=== PATIENT | female | born 1930 | race Caucasian/White ===

== ENCOUNTER 2021-06-07 17:55 | Inpatient (IN) | payer MEDICARE ==
[~2021-06-07] VITALS: Ht 167.6 cm; Wt 85.1 kg
--- NOTE | 2021-06-07 18:19 | PHYS DOC ---
Past History Past Medical History: Anxiety, Arthritis, Dementia, Depression, Diabetes General Adult EDM: Chief Complaint: WEAKNESS/GENERALIZED HPI: HPI: ...."... I was in the bathroom... " " I ve been weak... ".. " I maria luisa fell against the wall and slid ... down... and landed on my butt.. not really hurt except my hips... " Patient is a 89 year old female who presents with hx of fever, weakness and collapse. Pt. states she just fell against the wall in bathroom and slid down. Pt. does complain of some bilateral hip and low back pain. Pt has followed with Dr. Giron. Pt. has had poor intake recently and some episodes of vomiting and diarrhea. Has had some generalized lower abdomen pain this past week. Patient does have a past history of dementia, GERD, diabetes, hypothyroidism, bladder incontinence, constipation, elevated cholesterol, and generalized deconditioning. Patient denies any recent travel. No specific ill contacts. Patient has had 1 COVID vaccination and did have flu vaccination this season. Her last meal was a bottle of Ensure. Reportedly no recent use of antibiotics. No history contacts with C. difficile infection. Review of Systems: Review of Systems: Constitutional: Subjective complaints of fever or chills Eyes: Denies change in visual acuity HENT: Denies nasal congestion or sore throat Respiratory: Denies cough or shortness of breath Cardiovascular: Denies chest pain or edema GI: Complains of lower abdominal pain, nausea, vomiting, and diarrhea : Denies dysuria Musculoskeletal: Complaints of bilateral hip and lower back pain Integument: Denies rash Neurologic: Denies headache, focal weakness or sensory changes Endocrine: Denies polyuria or polydipsia Lymphatic: Denies swollen glands Psychiatric: History of depression and anxiety Family History: Family History: Noncontributory to presentation Current Medications: Current Meds: See nursing for home meds Allergies: Allergies: Allergic to sulfa Physical Exam: PE: Constitutional: Moderate acute distress, non-toxic appearance. [] HENT: Normocephalic, atraumatic, bilateral external ears normal, oropharynx dry, no oral exudates, nose normal. [] Eyes: PERRLA, EOMI, conjunctiva normal, no discharge. [] Neck: Normal range of motion, no tenderness, supple, no stridor. [] Cardiovascular: Tachycardia heart rate regular rhythm, no murmur, PMI to left Lungs & Thorax: Bilateral breath sounds equal at apex auscultation [] Abdomen: Bowel sounds hyperactive, soft, lower abdomen tenderness, no masses, no pulsatile masses. Rebound to lower abdomen Skin: Warm, dry, no erythema, no rash. Poor turgor Back: Lumbar tenderness, no CVA tenderness. [] Extremities:, no cyanosis, no clubbing, , no edema. Tenderness to bilateral hips Neurologic: Alert and oriented name, daughter,, knows she is in a hospital, moves all extremities on request, does appear to have distal sensory, no focal deficits noted Per patient or family Psychologic: Affect anxious, some obvious memory impairment, mood normal. [] EKG: EKG: My interpretation of EKG shows sinus rhythm at 91 bpm. There is some findings of a left axis deviation and repolarization abnormality. But no findings of acute STEMI of contralateral changes. There is some findings of inferior strain. Time of EKG is 1849 hrs. [] Radiology/Procedures: Radiology/Procedures: [place] [address] IMAGING REPORT Signed PATIENT: BEST MARTINEZ ACCOUNT: [id number] : 1930 LOCATION: ER AGE: 89 SEX: F EXAM STATUS: REG ER ORD. PHYSICIAN: ANJALI RENDON MD REASON: fall PROCEDURE: CT LUMBAR SPINE WO CONTRAST Exam: CT of lumbar spine without contrast INDICATION: Fall TECHNIQUE: Sequential axial images through the lumbar spine obtained without IV contrast. Sagittal and coronal reformatted images were reconstructed from the axial data and reviewed. Exposure: One or more of the following in the visualized dose reduction techniques were utilized for this examination: 1. Automated exposure control 2. Adjustment of the MA and/or KV according to patient size 3. Use of iterative of reconstructive technique Comparisons: None FINDINGS: Vertebral body heights are well-maintained. Grade 1 anterolisthesis of L4 on L5. Fracture through the lumbar spine is not identified. Multilevel spondylotic change in the lumbar spine with degenerative disc disease diffusely present throughout the lumbar spine. Diffuse bilateral facet arthropathy is also noted throughout the lumbar spine. Visualized paraspinal soft tissues are unremarkable. IMPRESSION: Negative CT lumbar spine for acute traumatic injury. Electronically signed by: Margarito Mcnally MD (06/07/2021 8:01 PM) [facility] DICTATED AND SIGNED BY: MARGRAITO MCNALLY MD DATE: 06/07/211958 CC: ANJALI RENDON MD; MATI GIRON ~MTH0 [address] [address] IMAGING REPORT Signed PATIENT: BEST ACCOUNT: [id number] : 1930 LOCATION: ER AGE: 89 SEX: F EXAM STATUS: REG ER ORD. PHYSICIAN: ANJALI RENDON MD REASON: fall PROCEDURE: CT HEAD WO CONTRAST Exam: CT head INDICATION: Fall TECHNIQUE: Sequential axial images through the head were obtained without the administration of IV contrast. Exposure: One or more of the following in the visualized dose reduction techniques were utilized for this examination: 1. Automated exposure control 2. Adjustment of the MA and/or KV according to patient size 3. Use of iterative of reconstructive technique Comparisons: None FINDINGS: No focal parenchymal lesion or hemorrhage is identified. There is no midline shift or sulcal effacement. No acute vascular territory infarction is identified. Palm-white distinction is preserved. The ventricular system is within normal limits without compression hydrocephalus. The basal cisterns are well maintained. The visualized portions of the paranasal sinuses and mastoid air cells are well- pneumatized. No acute fractures. IMPRESSION: No acute intracranial abnormality. Electronically signed by: Margarito Mcnally MD (06/07/2021 8:13 PM) [facility] DICTATED AND SIGNED BY: MARGARITO MCNALLY MD DATE: 06/07/212000 CC: ANJALI RENDON MD; MATI GIRON ~MTH0 0 [[address] [address] IMAGING REPORT Signed PATIENT: MICHELLEBEST ACCOUNT: [id number] : 1930 LOCATION: ER AGE: 89 SEX: F EXAM STATUS: REG ER ORD. PHYSICIAN: ANJALI RENDON MD REASON: pain PROCEDURE: ACUTE ABDOMEN SERIES Exam: Acute abdominal series INDICATION: Pain TECHNIQUE: Frontal view of the chest with upright and supine views the abdomen Comparisons: None FINDINGS: The cardiomediastinal silhouette and pulmonary vessels are within normal limits. The lung and pleural spaces are clear. Air and stool are noted throughout the colon to level the rectum in a nonobstructive bowel gas pattern. No suspicious masses or calcifications. Visualized osseous structures are unremarkable. IMPRESSION: 1. No acute cardiopulmonary process. 2. Nonobstructive bowel gas pattern. Electronically signed by: Margarito Mcnally MD (06/07/2021 8:50 PM) [facility] DICTATED AND SIGNED BY: MARGARITO MCNALLY MD DATE: 06/07/212048 CC: ANJALI RENDON MD; MATI GIRON Kamryn PA ~MTH0 0 ][place] [address] IMAGING REPORT Signed PATIENT: BEST MARTINEZ ACCOUNT: [id number] : 1930 LOCATION: ER AGE: 89 SEX: F EXAM STATUS: REG ER ORD. PHYSICIAN: ANJALI REDNON MD REASON: pain, OMNI 300, 60ml & OMNI 240, 30ml PROCEDURE: CT ABD PELV W/ORAL&IV CONTRAST Exam: CT of abdomen and pelvis with contrast INDICATION: Pain TECHNIQUE: Sequential axial images through the abdomen and pelvis obtained fo llowing the administration of 60 mL of Isovue-370 IV contrast. Sagittal and coronal reformatted images were reconstructed from the axial data and reviewed. Exposure: One or more of the following in the visualized dose reduction techniques were utilized for this examination: 1. Automated exposure control 2. Adjustment of the MA and/or KV according to patient size 3. Use of iterative of reconstructive technique Comparisons: Radiograph same day FINDINGS: Heart size is normal. No pericardial effusion. Strandy opacities the dependent portion lungs likely representing atelectasis. No pleural effusion. Cystic lesion at the left hepatic lobe measuring up to 5 cm favored represent simple cysts. Mild intrahepatic biliary ductal dilatation. Gallbladder surgicall y absent. Spleen, pancreas and adrenals are unremarkable. No perinephric inflammation or hydronephrosis. No renal or ureteral calculi are identified. Bladder is decompressed not well evaluated. Uterus is absent. No abnormal adnexal mass. There is a moderate length segment of wall thickening involving the descending and sigmoid colon. Remainder large and small bowel are unremarkable. No free intra-abdominal air or fluid. No obstruction. Abdominal aorta has a normal course and caliber. Abdominal vasculature is patent. No enlarged intra-abdominal lymph nodes are identified. No suspicious osseous lesions or acute fractures. IMPRESSION: Long segment colitis involving the descending and sigmoid colon. Infectious or inflammatory in etiology. Correlate with lactate levels for ischemia. Electronically signed by: Margarito Mcnally MD (06/07/2021 10:19 PM) [facility] DICTATED AND SIGNED BY: MARGARITO MCNALLY MD DATE: 06/07/212210 CC: ANJALI RENDON MD; MATI GIRON PA ~MTH0 0 Heart Score: C/O Chest Pain: N/A HEART Score for Chest Pain: HEART Score for Chest Pain Response (Comments) Value History Moderately Suspicious 1 ECG Nonspecific Repolarizatio 1 Age > 65 2 Risk Factors 1 or 2 Risk Factors 1 Troponin < Normal Limit 0 Total 5 Risk Factors: Risk Factors: DM, Current or recent (<one month) smoker, HTN, HLP, family history of CAD, obesity. Risk Scores: Score 0 - 3: 2.5% MACE over next 6 weeks - Discharge Home Score 4 - 6: 20.3% MACE over next 6 weeks - Admit for Clinical Observation Score 7 - 10: 72.7% MACE over next 6 weeks - Early Invasive Strategies Course & Med Decision Making: Course & Med Decision Making Pertinent Labs and Imaging studies reviewed. (See chart for details) Discussed presentation, testing and tx. plan with Dr. Talavera- admit to his service. Impression: 1. Abdomen Pain 2. Nausea/Vomiting/ Diarrhea 3. Elevated Lactic Acid 4.5 4. Dehydration 5. DM - 337 6. Renal Insuf. -32 BUN, -Creat 1.7 7. Leukocytosis 15.3 8. Elev. D-dimer 19 9. Colitis 10.SIRS 11. Dehydration [] Dragon Disclaimer: Dragdavid Disclaimer: This electronic medical record was generated, in whole or in part, using a voice recognition dictation system. Departure Departure: Referrals: MATI GIRON (PCP) Adelso Disclaimer This chart was dictated in whole or in part using Voice Recognition software in a busy, high-work load, and often noisy Emergency Department environment. It may contain unintended and wholly unrecognized errors or omissions. Dragon Disclaimer This chart was dictated in whole or in part using Voice Recognition software in a busy, high-work load, and often noisy Emergency Department environment. It may contain unintended and wholly unrecognized errors or omissions. ANJALI RENDON MD Jun 07, 2021 18:19
[2021-06-07 18:44] LABS: BASO % 0 % (0-3); EOS % 0 % (0-3); HEMATOCRIT 38.7 % (36.0-47.0); HEMOGLOBIN 12.7 g/dL (12.0-15.5); LYMPH # 0.3 x10^3/uL (1.0-4.8); LYMPH % 2 % (24-48); MEAN CORPUSCULAR HEMOGLOBIN 32 pg (25-35); MEAN CORPUSCULAR HGB CONC 33 g/dL (31-37); MEAN CORPUSCULAR VOLUME 97 fL (79-100); MONO % 6 % (0-9); NEUT % 92 % (31-73); PLATELET COUNT 189 x10^3/uL (140-400); RED BLOOD COUNT 3.98 x10^6/uL (3.50-5.40); RED CELL DISTRIBUTION WIDTH 13.5 % (11.5-14.5); WHITE BLOOD COUNT 15.3 x10^3/uL (4.0-11.0)
[2021-06-07] MEDS ORDERED: cefTRIAXone SODIUM 1 GM VIAL ONE (18:53)
[2021-06-07] MEDS ORDERED: IV NORMAL SALINE 50ML 50 ML ONE (18:53)
[2021-06-07 19:04] LABS: CALCIUM 9.4 mg/dL (8.5-10.1); CREATININE 1.7 mg/dL (0.6-1.0); GFR 28.3
[2021-06-07 19:16] LABS: ALBUMIN 3.2 g/dL (3.4-5.0); DIRECT BILIRUBIN 0.2 mg/dL (0.0-0.2); MAGNESIUM 2.3 mg/dL (1.8-2.4); TOTAL BILIRUBIN 0.4 mg/dL (0.2-1.0)
[2021-06-07 19:42] LABS: % BANDS 5 % (0-9); % LYMPHS 4 % (24-48); % MONOS 6 % (0-10); % SEGS 85 % (35-66); PLT ESTIMATE ADEQUATE (ADEQUATE)
[2021-06-07] MEDS: IV RINGERS SOLUTION,LACTATED 1,000 ML IV SCH ×2 (19:49→21:46)
--- NOTE | 2021-06-07 20:03 | RAD ---
Exam: CT of lumbar spine without contrast INDICATION: Fall TECHNIQUE: Sequential axial images through the lumbar spine obtained without IV contrast. Sagittal an d coronal reformatted images were reconstructed from the axial data and reviewed. Exposure: One or more of the following in the visualized dose reduction techniques were utilized for this examination: 1. Automated exposure control 2. Adjustment of the MA and/or KV according to patient size 3. Use of iterative of reconstructive technique Comparisons: None FINDINGS: Vertebral body heights are well-maintained. Grade 1 anterolisthesis of L4 on L5. Fracture through the lumbar spine is not identified. Multilevel spondylotic change in the lumbar spine with degenerative disc disease diffusely present th roughout the lumbar spine. Diffuse bilateral facet arthropathy is also noted throughout the lumbar sp ine. Visualized paraspinal soft tissues are unremarkable. IMPRESSION: Negative CT lumbar spine for acute traumatic injury. Electronically signed by: Margarito Cox MD (06/07/2021 8:01 PM) [facility]
[2021-06-07 20:10] LABS: INFLUENZA A PATIENT NEGATIVE (NEGATIVE); INFLUENZA B PATIENT NEGATIVE (NEGATIVE)
--- NOTE | 2021-06-07 20:15 | RAD ---
Exam: CT head INDICATION: Fall TECHNIQUE: Sequential axial images through the head were obtained without the administration of IV co ntrast. Exposure: One or more of the following in the visualized dose reduction techniques were utilized for this examination: 1. Automated exposure control 2. Adjustment of the MA and/or KV according to patient size 3. Use of iterative of reconstructive technique Comparisons: None FINDINGS: No focal parenchymal lesion or hemorrhage is identified. There is no midline shift or sulcal effaceme nt. No acute vascular territory infarction is identified. Palm-white distinction is preserved. The ventricular system is within normal limits without compression hydrocephalus. The basal cisterns are well maintained. The visualized portions of the paranasal sinuses and mastoid air cells are well-pneumatized. No acute fractures. IMPRESSION: No acute intracranial abnormality. Electronically signed by: Margarito Cox MD (06/07/2021 8:13 PM) [facility]
[2021-06-07] MEDS ORDERED: IOHEXOL 300 MG/ML 75 ML VIAL. IV ONE (20:30)
[2021-06-07] MEDS ORDERED: IOHEXOL 240 MG/ML 50ML VIAL. PO ONE (20:45)
[2021-06-07] MEDS ORDERED: levETIRAcetam 500 MG/5 ML VIAL IV ONE (20:49)
[2021-06-07] MEDS ORDERED: IV NORMAL SALINE 100ML 100 ML ONE (20:50)
--- NOTE | 2021-06-07 20:52 | RAD ---
Exam: Acute abdominal series INDICATION: Pain TECHNIQUE: Frontal view of the chest with upright and supine views the abdomen Comparisons: None FINDINGS: The cardiomediastinal silhouette and pulmonary vessels are within normal limits. The lung and pleural spaces are clear. Air and stool are noted throughout the colon to level the rectum in a nonobstructive bowel gas patter n. No suspicious masses or calcifications. Visualized osseous structures are unremarkable. IMPRESSION: 1. No acute cardiopulmonary process. 2. Nonobstructive bowel gas pattern. Electronically signed by: Margarito Cox MD (06/07/2021 8:50 PM) K[facility]ST[facility]
--- NOTE | 2021-06-07 22:21 | RAD ---
Exam: CT of abdomen and pelvis with contrast INDICATION: Pain TECHNIQUE: Sequential axial images through the abdomen and pelvis obtained following the administrati on of 60 mL of Isovue-370 IV contrast. Sagittal and coronal reformatted images were reconstructed fro m the axial data and reviewed. Exposure: One or more of the following in the visualized dose reduction techniques were utilized for this examination: 1. Automated exposure control 2. Adjustment of the MA and/or KV according to patient size 3. Use of iterative of reconstructive technique Comparisons: Radiograph same day FINDINGS: Heart size is normal. No pericardial effusion. Strandy opacities the dependent portion lungs likely r epresenting atelectasis. No pleural effusion. Cystic lesion at the left hepatic lobe measuring up to 5 cm favored represent simple cysts. Mild intr ahepatic biliary ductal dilatation. Gallbladder surgically absent. Spleen, pancreas and adrenals are unremarkable. No perinephric inflammation or hydronephrosis. No renal or ureteral calculi are identified. Bladder is decompressed not well evaluated. Uterus is absent. No abnormal adnexal mass. There is a moderate length segment of wall thickening involving the descending and sigmoid colon. Rem ainder large and small bowel are unremarkable. No free intra-abdominal air or fluid. No obstruction. Abdominal aorta has a normal course and caliber. Abdominal vasculature is patent. No enlarged intra-abdominal lymph nodes are identified. No suspicious osseous lesions or acute fractures. IMPRESSION: Long segment colitis involving the descending and sigmoid colon. Infectious or inflammatory in etiolo gy. Correlate with lactate levels for ischemia. Electronically signed by: Margarito Cox MD (06/07/2021 10:19 PM) [facility]
[2021-06-07] MEDS ORDERED: ONDANSETRON PF 4 MG/2 ML VIAL. IVP PRN (23:45)
[2021-06-07] MEDS ORDERED: INSULIN REGULAR VIAL 100 UNIT in IV NORMAL SALINE 100ML 100 ML IV PRN (23:45)
[2021-06-07] MEDS ORDERED: ACETAMINOPHEN 325 MG TABLET PO PRN (23:45)
[2021-06-08] MEDS ORDERED: IV RINGERS SOLUTION,LACTATED 1,000 ML IV ONE
[2021-06-08] MEDS ORDERED: INSULIN REGULAR 100 UNIT/ML 3ML VIAL. IV ONE
[2021-06-08] MEDS ORDERED: APIXABAN 5 MG TABLET. PO ONE (01:00)
[2021-06-08 02:25] VITALS: BP 105/62
--- NOTE | 2021-06-08 02:45 | NUR ---
The patient, BEST MARTINEZ, 89 y/o, F admitted by MERY MATHIS MD, was given written information regarding hospital policies, unit procedures and contact persons. Valuables were checked and vitals taken. Pt is A&Ox4 able to express own concerns on room air. Pt has no complaints at this time. Pt is [place] but also states she has ordered hearing aids and also glasses. Pt is currently in bed resting.
[2021-06-08] MEDS: IV RINGERS SOLUTION,LACTATED 1,000 ML IV SCH (03:10)
[2021-06-08] MEDS ORDERED: CARB1DRO20 EACHEYE (04:11)
[2021-06-08] MEDS ORDERED: DONE5TAB7 PO (04:11)
[2021-06-08] MEDS ORDERED: OXYB5TAB10 PO (04:11)
[2021-06-08] MEDS ORDERED: CHOL400T36 PO (04:11)
[2021-06-08] MEDS ORDERED: MULT-245 PO (04:11)
[2021-06-08] MEDS ORDERED: LEVO75TA5 PO (04:11)
[2021-06-08] MEDS ORDERED: POLY2500 PO (04:11)
[2021-06-08] MEDS ORDERED: FAMO20TA5 PO (04:11)
[2021-06-08] MEDS ORDERED: DOCU100C28 PO ×2 (04:11)
[2021-06-08] MEDS ORDERED: [UNRECOGNIZED DRUG - CODE] PO (04:11)
[2021-06-08] MEDS ORDERED: SIMV80TA17 PO (04:11)
[2021-06-08] MEDS ORDERED: OMEG1CAP50 PO (04:11)
[2021-06-08] MEDS ORDERED: ASPI-630 PO (04:11)
[2021-06-08] MEDS ORDERED: PRIM50TA24 PO (04:11)
[2021-06-08] MEDS ORDERED: GLIP5TAB10 PO (04:11)
[2021-06-08] MEDS ORDERED: IPRATRPIUM/ALBUTEROL 0.5/2.5MG 3 ML NEBU. ONE (05:07)
[2021-06-08 05:20] VITALS: BP 128/67
[2021-06-08] MEDS: IPRATRPIUM/ALBUTEROL 0.5/2.5MG 3 ML NEBU. NEB SCH ×4 (05:33→19:10)
[2021-06-08 06:14] LABS: BASO % 0 % (0-3); EOS % 0 % (0-3); HEMATOCRIT 34.4 % (36.0-47.0); HEMOGLOBIN 11.3 g/dL (12.0-15.5); LYMPH # 1.7 x10^3/uL (1.0-4.8); LYMPH % 13 % (24-48); MEAN CORPUSCULAR HEMOGLOBIN 32 pg (25-35); MEAN CORPUSCULAR HGB CONC 33 g/dL (31-37); MEAN CORPUSCULAR VOLUME 97 fL (79-100); MONO # 1.6 x10^3/uL (0.0-1.1); MONO % 12 % (0-9); NEUT # 10.5 x10^3uL (1.8-7.7); NEUT % 75 % (31-73); PLATELET COUNT 176 x10^3/uL (140-400); RED BLOOD COUNT 3.56 x10^6/uL (3.50-5.40); RED CELL DISTRIBUTION WIDTH 13.5 % (11.5-14.5); WHITE BLOOD COUNT 13.9 x10^3/uL (4.0-11.0)
[2021-06-08 06:20] LABS: CALCIUM 8.6 mg/dL (8.5-10.1); CREATININE 1.5 mg/dL (0.6-1.0); GFR 32.7; POTASSIUM 3.9 mmol/L (3.5-5.1)
[2021-06-08] MEDS: POLYVINYL ALCOHOL 1.4% OPHTH SOLUTION 15ML BOTTLE. OU SCH ×6 (06:35→20:24)
[2021-06-08] MEDS: LEVOTHYROXINE 75 MCG TABLET PO SCH (06:35)
[2021-06-08] MEDS: POLYETHYLENE GLYCOL 3350 17 GM PACKET. PO SCH (07:56)
[2021-06-08] MEDS: FAMOTIDINE 20 MG TABLET PO SCH (07:57)
[2021-06-08] MEDS: ASPIRIN CHEWABLE 81 MG TABLET. PO SCH (07:57)
[2021-06-08] MEDS: CHOLECALCIFEROL (VITAMIN D3) 1,000 UNIT TABLET PO SCH (07:57)
[2021-06-08] MEDS: DONEPEZIL HCL 5 MG TABLET. PO SCH (07:57)
[2021-06-08] MEDS: glipiZIDE 5 MG TABLET PO SCH ×2 (07:58→16:52)
[2021-06-08] MEDS: OXYBUTYNIN CHLORIDE 5 MG TABLET PO SCH (07:58)
[2021-06-08] MEDS: metroNIDAZOLE 500 MG TABLET PO SCH ×3 (07:58→20:24)
[2021-06-08] MEDS: DOCUSATE SODIUM 100 MG CAPSULE PO SCH ×2 (07:58→20:22)
[2021-06-08] MEDS: MULTIVITAMIN with MINERAL TABLET. PO SCH (07:58)
[2021-06-08] MEDS ORDERED: OMEGA-3 FATTY ACIDS/FISH OIL 1,000 MG CAPSULE. PO SCH (09:00)
[2021-06-08] MEDS ORDERED: LUTEIN PO SCH (09:00)
[2021-06-08] MEDS ORDERED: MULTIVIT MIN PO SCH (09:00)
[2021-06-08] MEDS ORDERED: [UNRECOGNIZED DRUG - OTHER] PO SCH (09:00)
[2021-06-08] MEDS ORDERED: ZEAXANT PO SCH (09:00)
[2021-06-08 09:01] LABS: BACTERIA,URINE 0 /HPF (0-FEW); BILIRUBIN,URINE NEG (NEG); CLARITY,URINE CLEAR; COLOR,URINE YELLOW; GLUCOSE,URINE NEG (NEG); NITRITE,URINE NEG (NEG); RBC,URINE OCC /HPF (0-2); SQUAMOUS EPITHELIAL CELL,UR OCC /LPF; UROBILINOGEN,URINE 0.2 mg/dL (0.2 mg/dL); WBC,URINE OCC /HPF (0-4)
[2021-06-08] MEDS: PRIMIDONE 50 MG TABLET PO SCH (10:13)
[2021-06-08 11:01] VITALS: BP 115/56
[2021-06-08 14:51] VITALS: BP 134/55
--- NOTE | 2021-06-08 15:12 | HP ---
DATE OF SERVICE: 06/08/2021 ADMIT DATE: 06/08/2021 HISTORY OF PRESENT ILLNESS: The patient is an 89-year-old female patient who presented to the Emergency Room with a complaint of generalized weakness. She apparently went to the bathroom and according to her, she felt weak and fell against the wall and slid down and landed on her butt and felt pain all over. She did have also history of fever and stated that she just fell against the wall in the bathroom. She also complained of some bilateral hip and low back pain. She had poor intake recently and some episodes of vomiting and diarrhea, has had some generalized lower abdominal pain this past week. She does have past medical history of dementia and multiple other medical problems. She denied any recent travel or specific ill contact. She had one COVID vaccination and did have flu vaccination this season. Her last meal was a bottle of Ensure. Reportedly, no recent use of antibiotics. No history of contacts with C. diff infection. She was extensively investigated in the Emergency Room with lab work as well as imaging studies. Her CBC showed she has leukocytosis with a white cell count of 15,000. Her D-dimer was extremely high, more than 19. However, her prothrombin time and INR were within normal range. Her chemistry was also mostly unremarkable except for dehydration. Her blood sugar was high. She did have lactic acidosis. Urinalysis was essentially unremarkable and her CT scan of the head showed no acute intracranial abnormality. X-ray of the lumbar spine was unremarkable and unrevealing and CT scan of the abdomen and pelvis showed that the patient has large segment colitis involving the descending and sigmoid colon. Infectious inflammatory etiology correlates with lactate levels for ischemia. The patient was started on IV ceftriaxone as well as Flagyl and was admitted with acute colitis. PAST MEDICAL HISTORY: Significant for gastroesophageal reflux disease, type 2 diabetes mellitus, hypothyroidism, has chronic constipation, hyperlipidemia, generalized deconditioning, and bladder incontinence. PAST SURGICAL HISTORY: Significant for cholecystectomy, right total hip arthroplasty and total abdominal hysterectomy, bilateral salpingo-oophorectomy. ALLERGIES: SHE IS ALLERGIC TO SULFA DRUGS. MEDICATIONS: She is currently on the following medication: She is on Aricept 5 mg daily, simvastatin 80 mg at bedtime, [place] 3 fatty acids 1000 mg once a day, aspirin 81 mg once a day, primidone for Mysoline 50 mg daily. She is on carboxymethylcellulose for artificial tears 1 drop to both eyes 6 times a day. She is on Colace 100 mg twice a day, famotidine 20 mg twice a day, glipizide 5 mg twice a day. She is on levothyroxine 75 mcg once a day, oxybutynin chloride 5 mg daily. She is also on cholecalciferol 800 units once a day, multivitamin 1 tablet once a day. She is on polyethylene glycol 17 grams once a day. FAMILY HISTORY: Noncontributory. SOCIAL HISTORY: She is , currently lives with her daughter and son-in-law. She never smoked, never drank alcohol, does not use any drugs. She is a retired registered nurse. REVIEW OF SYSTEMS: She has bilateral cataracts that did not require any surgery. Denied any glaucoma or macular degeneration. She has severe sensorineural deafness, but denied any nosebleed, stuffy nose or postnasal drip. Denied any sore throat, sore tongue, toothache, hoarseness of voice or difficulty swallowing. Did complain of nausea, vomiting and has also diarrhea and constipation. Did complain of abdominal pain, mostly in the left lower quadrant and suprapubic area. PHYSICAL EXAMINATION: GENERAL: On arrival to the Emergency Room, the patient looked well and was clearly in no apparent respiratory distress. There was no pallor, jaundice, cyanosis or thyromegaly. No jugular venous distention. No lower limb edema. VITAL SIGNS: Her heart rate on arrival was 95, blood pressure is 129/62, temperature was 100.4, respiratory rate was 20 and oxygen saturation was 95% on room air. HEAD, EYES, EARS, NOSE, AND THROAT: Normocephalic, atraumatic. NECK: Supple. HEART: Showed normal first and second heart sounds. No gallop, rub or murmur. CHEST: Shows central trachea, equal bilateral chest expansion, air entry, vesicular breath sounds. No crepitation or rhonchi. ABDOMEN: Distended, generally soft with tenderness mostly in the left lower quadrant and suprapubic area. There is no guarding or rigidity. No organomegaly. All hernial orifices intact. Bowel sounds normal. NEUROLOGIC: She is very hard of hearing, otherwise all cranial nerves were intact. She moves extremities without difficulty. She does have peripheral diabetic neuropathy with complete loss of sensation according to her, particularly left foot. LABORATORY DATA: Her lab work on arrival showed a white cell count 15,300, hemoglobin 12.7, hematocrit 38.7, MCV 97 and platelet count of 189,000 with manual differential showed 92% polymorphs, 2% lymphocytes and 6% monocytes. Her serum sodium was 135, potassium 5, chloride 99, bicarbonate 22, anion gap of 14, BUN 32, creatinine 1.7. Glucose was 327. Estimated GFR was 28 mL per minute. Her lactic acid was 4.5, calcium was 9.4, magnesium 2.3. Total bilirubin, AST, ALT, alkaline phosphatase were normal. Her total protein was 6, albumin was 3.2 and serum lipase was 186. Her urinalysis was essentially unremarkable. D-dimer was extremely high at 19 mg per liter and her influenza A and B and rapid COVID testing was negative. ASSESSMENT AND PLAN: In summary, this is an 89-year-old female patient who came with generalized abdominal pain, some nausea and vomiting as well as diarrhea and generalized weakness. She was diagnosed with what seems to be acute colitis versus ischemic colitis involving the descending colon and sigmoid colon. Plan is to continue with IV antibiotic in the form of Flagyl and ceftriaxone. Continue with all her other medication. We will start her on clear liquid diet and advance diet as tolerated. I would also add LDH as the distribution of her colitis is consistent or typical for ischemic colitis. RENETTA/SHUKRI STEVENSON: Teresa TID: [id number]
[2021-06-08] MEDS: ENOXAPARIN ** NOTE DOSE ** SYRINGE SQ SCH (15:24)
[2021-06-08] MEDS: IV 1/2 NORMAL SALINE 1,000 ML IV SCH (15:26)
--- NOTE | 2021-06-08 17:06 | RAD ---
LEFT LEG VENOUS DOPPLER STUDY: Clinical indications: Left leg swelling and pain. Findings: Duplex sonography (including xiao scale evaluation and color flow and waveform spectral porfirio lysis) of the proximal aspect of the greater saphenous vein and the proximal aspect of the profunda f emoral vein and the entire length of the common femoral and superficial femoral and popliteal veins a nd the tibioperoneal trunk and the proximal aspect of the posterior tibial and peroneal veins of the left leg was performed. Normal compressibility, augmentation of color Doppler flow after calf kade lily, and respiratory variation of Doppler flow is seen. Thus, there are no sonographic findings of d eep venous thrombosis within these veins. Impression: There are no sonographic findings of deep venous thrombosis within the veins discussed ab ove of the left lower extremity. 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 RIGHT LEG VENOUS DOPPLER STUDY: Clinical indications: Right leg swelling and pain. Findings: Duplex sonography (including xiao scale evaluation and color flow and waveform spectral porfirio lysis) of the proximal aspect of the greater saphenous vein and proximal aspect of the profunda femor al vein and the entire length of the common femoral and superficial femoral and popliteal veins and t he tibioperoneal trunk and the proximal aspect of the posterior tibial and peroneal veins of the righ t leg was performed. Normal compressibility, augmentation of color Doppler flow after calf compressio n, and respiratory variation of Doppler flow is seen. Thus, there are no sonographic findings of deep venous thrombosis within these veins. Impression: There are no sonographic findings of deep venous thrombosis within the veins discussed ab ove of the right lower extremity. Electronically signed by: Junior López MD (06/08/2021 5:03 PM) [id number]
[2021-06-08 19:00] VITALS: BP 108/62
[2021-06-08] MEDS: SIMVASTATIN 40 MG TABLET. PO SCH (20:24)
[2021-06-08] MEDS: LACTOBACILLUS RHAMNOSUS GG 1 CAPSULE. PO SCH (20:24)
--- NOTE | 2021-06-08 23:07 | NUR ---
Assumed care of pt at this time. Report received from SHERMAN Givens. Pt resting comfortably in bed, call light in reach.
[2021-06-09] MEDS: IV 1/2 NORMAL SALINE 1,000 ML IV SCH (03:11)
--- NOTE | 2021-06-09 03:53 | EKG ---
[address] [address] Test Date: 2021-06-07 Test Time: 18:49:16 Pat Name: BEST MARTINEZ Department: Room: 107 A Gender: F Manager Basketball: ANTONY : 1930 Requested By: ANJALI RENDON Order Number: [id number] Reading MD: Paul Armstrong MD Measurements Intervals [place] Rate: 91 P: -41 HI: 174 QRS: -33 QRSD: 112 T: 123 QT: 366 QTc: 458 Interpretive Statements SINUS RHYTHM LBBB LAD Electronically Signed On 06-14-2021 14:16:[address]PRAISER by Paul Armstrong MD
[2021-06-09] MEDS: IPRATRPIUM/ALBUTEROL 0.5/2.5MG 3 ML NEBU. NEB SCH ×2 (04:46→05:17)
[2021-06-09] MEDS: LEVOTHYROXINE 75 MCG TABLET PO SCH (05:16)
[2021-06-09 05:17] VITALS: BP 123/71
[2021-06-09 06:09] LABS: HEMOGLOBIN 10.8 g/dL (12.0-15.5); RED BLOOD COUNT 3.37 x10^6/uL (3.50-5.40); RED CELL DISTRIBUTION WIDTH 13.2 % (11.5-14.5); WHITE BLOOD COUNT 9.5 x10^3/uL (4.0-11.0)
[2021-06-09 06:20] LABS: ALBUMIN 2.6 g/dL (3.4-5.0); ALBUMIN/GLOBULIN RATIO 0.9 (1.0-1.7); CALCIUM 8.4 mg/dL (8.5-10.1); CREATININE 1.2 mg/dL (0.6-1.0); GFR 42.3; TOTAL BILIRUBIN 0.4 mg/dL (0.2-1.0); TOTAL PROTEIN 5.6 g/dL (6.4-8.2)
[2021-06-09] MEDS: POLYVINYL ALCOHOL 1.4% OPHTH SOLUTION 15ML BOTTLE. OU SCH ×6 (07:00→21:41)
[2021-06-09] MEDS: glipiZIDE 5 MG TABLET PO SCH ×2 (08:29→15:45)
[2021-06-09] MEDS: OXYBUTYNIN CHLORIDE 5 MG TABLET PO SCH (08:30)
[2021-06-09] MEDS: metroNIDAZOLE 500 MG TABLET PO SCH ×3 (08:30→21:41)
[2021-06-09] MEDS: ASPIRIN CHEWABLE 81 MG TABLET. PO SCH (08:30)
[2021-06-09] MEDS: DONEPEZIL HCL 5 MG TABLET. PO SCH (08:30)
[2021-06-09] MEDS: LACTOBACILLUS RHAMNOSUS GG 1 CAPSULE. PO SCH ×2 (08:30→19:40)
[2021-06-09] MEDS: MULTIVITAMIN with MINERAL TABLET. PO SCH (08:31)
[2021-06-09] MEDS: OMEGA-3 FATTY ACIDS/FISH OIL 1,000 MG CAPSULE. PO SCH (08:31)
[2021-06-09] MEDS: CHOLECALCIFEROL (VITAMIN D3) 1,000 UNIT TABLET PO SCH (08:31)
[2021-06-09] MEDS: FAMOTIDINE 20 MG TABLET PO SCH (08:31)
[2021-06-09] MEDS: PRIMIDONE 50 MG TABLET PO SCH (08:31)
[2021-06-09] MEDS: DOCUSATE SODIUM 100 MG CAPSULE PO SCH ×2 (09:00→19:41)
[2021-06-09] MEDS: POLYETHYLENE GLYCOL 3350 17 GM PACKET. PO SCH (09:00)
[2021-06-09 10:24] VITALS: BP 114/70
[2021-06-09] MEDS: ENOXAPARIN ** NOTE DOSE ** SYRINGE SQ SCH (14:25)
[2021-06-09] MEDS ORDERED: IV NORMAL SALINE 1,000ML 1,000 ML IV SCH (15:30)
[2021-06-09 15:33] VITALS: BP 130/75
[2021-06-09] MEDS ORDERED: CONTRAST GIVEN. MC PRN (16:00)
[2021-06-09] MEDS ORDERED: IOHEXOL 350 MG/ML 100 ML VIAL. IV ONE (16:00)
[2021-06-09 16:29] VITALS: BP 136/63
[2021-06-09] MEDS ORDERED: diphenhydrAMINE 50 MG/ML VIAL IVP ONE (16:45)
--- NOTE | 2021-06-09 16:52 | RAD ---
Examination: CT angiography chest with IV contrast HISTORY: History of hypoxia, shortness of breath COMPARISON: None available TECHNIQUE: Axial CT angiographic images of chest were performed with IV contrast and coronal sagittal 3-D MIP reformats are performed Exposure: One or more of the following individualized dose reduction techniques were utilized for thi s examination: 1. Automated exposure control 2. Adjustment of the mA and/or kV according to patient size 3. Use of iterative reconstruction technique FINDINGS: The central airways are patent. Coronary artery calcifications identified. There is no evidence of fi lling defect identified in the main pulmonary arterial trunk and right and left main pulmonary arteri es. The evaluation of distal branches of the pulmonary arteries is limited.6.5 mm nodule left upper l obe of the lung. Minimal bibasilar lung atelectasis. Large cystic structure identified in the left lo be measuring 3.8 cm likely cyst. The adrenals grossly appears unremarkable Moderate degenerative changes thoracic spine. IMPRESSION: 1. No evidence of central pulmonary embolism. The evaluation of distal branches of the pulmonary art eries is limited. 2. Coronary artery calcifications. 3. 6.5 mm nodule left upper lobe of the lung. 4. Large cystic structure identified in the left lobe of the liver measuring 3.8 cm likely cyst. Follow-up per Fleischner Society guidelines. Fleischner Society recommendations (Radiology 2005; 237; 395-400): In a low risk patient: <4mm - No follow up required. >4-6mm- 12 month follow up, if unchanged, no further follow up. >6-8mm- 6-12 month follow up, then at 18-24 months if no change. >8mm- 3, 9, 24 month follow up or consideration of PET/CT. In a high risk patient: <4mm - 12 month follow up, if unchanged then no further follow up. >4-6mm- 6-12 month follow up, then at 18-24 months if no change. >6-8mm- 3-6 month follow up, then at 9-12 months and 24 months if no change >8mm- Same as for low risk patient. Electronically signed by: Beto Tijerina MD (06/09/2021 4:50 PM) [id number]
[2021-06-09] MEDS ORDERED: HYDROCORTISONE SOD SUCC/PF 100 MG/2 ML VIAL. IVP ONE (17:00)
[2021-06-09] MEDS ORDERED: IV DEXTROSE 5% - 0.9 % NACL 1,000 ML IV SCH (17:00)
--- NOTE | 2021-06-09 17:46 | NUR ---
Patient came back from CT with contrast test. This nurse went to her room and found patient flushed and diaphoretic. Notified Dr. Talavera of change in condition. Orders for IV Benadryl and Hydrocortisone given as prescribed. Obtained vital signs which were within normal limits. Obtained blood sugar which was below normal (see cart for values). Gave patient juice and food, then rechecked blood sugar which were within normal limits. Patient is now resting comfortably in her room.
[2021-06-09] MEDS: SIMVASTATIN 40 MG TABLET. PO SCH (19:40)
[2021-06-09 19:46] VITALS: BP 154/65
[2021-06-09 23:34] VITALS: BP 161/65
--- NOTE | 2021-06-09 23:40 | PN ---
DATE: 06/09/2021 SUBJECTIVE: The patient is resting, slightly propped up in bed, in no apparent distress. She stated that she continued to have some abdominal pain, mostly in the left quadrant and loose bowel movement, although this afternoon, she is feeling much better. Her appetite is poor and her intake is inadequate. PHYSICAL EXAMINATION: GENERAL: When I examined her, she looked well and was clearly in no apparent respiratory distress, pale. No jaundice, cyanosis or thyromegaly. No jugular venous distention. No limb edema. VITAL SIGNS: Her heart rate was 75, blood pressure 114/70, temperature was 98.4, respiratory rate was 20 and oxygen saturation was 96%. HEAD, EYES, EARS, NOSE, AND THROAT: Normocephalic, atraumatic. NECK: Supple. HEART: Showed normal first and second heart sounds. No gallop, rub or murmur. CHEST: Clear to auscultation, no crepitation or rhonchi. ABDOMEN: Distended, soft with tenderness mostly in the left lower quadrant. There is no guarding or rigidity. No organomegaly. All hernial orifice intact. Bowel sounds normal. NEUROLOGIC: She was grossly intact. Her intake and output are incompletely recorded. LABORATORY DATA: Her white cell count was 9500, hemoglobin 10.8, hematocrit 33, MCV 98 and platelet count 258,000. Her chemistry showed serum sodium 133, potassium 4, chloride 99, bicarbonate 24, anion gap of 10, BUN 25, creatinine 1.2. Estimated GFR was 42 mL per minute. Her glucose was 77, calcium was 8.4. Total bilirubin, AST, ALT, alkaline phosphatase were normal. Total protein 5.6, albumin was 2.6. D-dimer was 19. Urinalysis essentially unremarkable. ASSESSMENT AND PLAN: Acute colitis, has had no more nausea or vomiting. Did have some loose bowel movement this morning. She is clinically responding. Her white cell count came down from 15,000-9000. Other medical problems include type 2 diabetes mellitus, hypothyroidism, chronic constipation, hyperlipidemia, generalized deconditioning, bladder incontinence. Her blood glucose is somewhat on the lower side. I will cut down her glipizide and discontinue the evening, keeping her only on once a day and that might need to be cut down further. I also arranged for her to have CT angio of the chest to complete the investigation and if it is negative for pulmonary emboli, we need to cut down the Lovenox to prophylactic dose. AMARJIT/LUISITO DR: Teresa TID: [id number]
[2021-06-10] MEDS: LEVOTHYROXINE 75 MCG TABLET PO SCH (05:32)
[2021-06-10] MEDS: metroNIDAZOLE 500 MG TABLET PO SCH (05:32)
[2021-06-10 05:51] VITALS: BP 148/72
[2021-06-10 06:21] LABS: HEMATOCRIT 35.4 % (36.0-47.0); HEMOGLOBIN 11.6 g/dL (12.0-15.5); RED BLOOD COUNT 3.62 x10^6/uL (3.50-5.40); RED CELL DISTRIBUTION WIDTH 13.6 % (11.5-14.5); WHITE BLOOD COUNT 10.2 x10^3/uL (4.0-11.0)
[2021-06-10 06:35] LABS: ALBUMIN 2.7 g/dL (3.4-5.0); ALBUMIN/GLOBULIN RATIO 0.8 (1.0-1.7); CALCIUM 8.5 mg/dL (8.5-10.1); GFR 52.2; POTASSIUM 4.1 mmol/L (3.5-5.1); TOTAL BILIRUBIN 0.2 mg/dL (0.2-1.0); TOTAL PROTEIN 6.1 g/dL (6.4-8.2)
[2021-06-10] MEDS: MULTIVITAMIN with MINERAL TABLET. PO SCH (08:12)
[2021-06-10] MEDS: CHOLECALCIFEROL (VITAMIN D3) 1,000 UNIT TABLET PO SCH (08:12)
[2021-06-10] MEDS: OMEGA-3 FATTY ACIDS/FISH OIL 1,000 MG CAPSULE. PO SCH (08:12)
[2021-06-10] MEDS: DONEPEZIL HCL 5 MG TABLET. PO SCH (08:12)
[2021-06-10] MEDS: ASPIRIN CHEWABLE 81 MG TABLET. PO SCH (08:12)
[2021-06-10] MEDS: LACTOBACILLUS RHAMNOSUS GG 1 CAPSULE. PO SCH (08:13)
[2021-06-10] MEDS: FAMOTIDINE 20 MG TABLET PO SCH (08:13)
[2021-06-10] MEDS: DOCUSATE SODIUM 100 MG CAPSULE PO SCH (08:13)
[2021-06-10] MEDS: POLYETHYLENE GLYCOL 3350 17 GM PACKET. PO SCH (08:13)
[2021-06-10] MEDS: glipiZIDE 5 MG TABLET PO SCH (08:14)
[2021-06-10] MEDS: OXYBUTYNIN CHLORIDE 5 MG TABLET PO SCH (08:14)
[2021-06-10] MEDS: PRIMIDONE 50 MG TABLET PO SCH (08:15)
[2021-06-10] MEDS: POLYVINYL ALCOHOL 1.4% OPHTH SOLUTION 15ML BOTTLE. OU SCH (08:15)
[2021-06-10 10:49] VITALS: BP 146/64
--- NOTE | 2021-06-10 12:10 | NUR ---
PT IS DISCHARGED HOME WITH SELF CARE. PTS IV IS REMOVED AND TELE MONITOR IS D/C'D. PT IS STABLE AT TIME OF DISCHARGED. PT IS GIVEN ALL DISCHARGE AND FOLLOW UP INSTRUCTIONS. PT IS ESCORTED OFF UNIT ACCOMPANIED BY STAFF.
--- NOTE | 2021-06-10 14:36 | DS ---
DATE OF DISCHARGE: 06/10/2021 ATTENDING PHYSICIANS: Dr. Talavera and Dr. Melendrez. FINAL DISCHARGE DIAGNOSES: 1. Abdominal pain, resolved. 2. Self-limiting gastroenteritis, resolved. 3. Nonspecific colitis, resolved. 4. Hypothyroidism, on replacement. 5. Gastroesophageal reflux disease. 6. Type 2 diabetes, non-insulin dependent. 7. Hyperlipidemia. 8. Generalized debilitation. HISTORY AND PHYSICAL: The patient is a very pleasant 89-year-old female admitted through the ED with abdominal pain and gastroenteritis. Extensive workup showed no obstruction. She was admitted for further treatment and evaluation. PHYSICAL EXAMINATION: Please see the dictated note. PERTINENT LABORATORY AND IMAGING STUDIES: I did review her extensive workup. Serology was negative for coronavirus and influenza. Hemoglobin was 12.7 grams. White count initially was 15,300, repeated was down to 10,200. Chemistry panel fairly unremarkable. Nonfasting blood sugar 156. Extensive imaging studies and total body CT showed no evidence in the head. Lumbar spine was unremarkable. Abdominal and pelvic films show nonspecific colitis. Otherwise, no obstruction or other significant pathology. COURSE IN THE HOSPITAL: The patient was admitted. She was started on empiric antibiotics. She did well. This was discontinued. Diet was advanced and symptoms resolved. By the third hospital day, she was back to her baseline. Her blood pressure was adequate. She was afebrile. She was ready for discharge. At this time, there are no changes on her medications. I spoke with the daughter, who is a registered nurse at the [employer]. She will continue her aspirin daily, vitamin D3, docusate, Aricept, famotidine, glipizide 5 mg b.i.d., multivitamin, omega 3, oxybutynin, MiraLax, Mysoline, and Zocor dose is unchanged. She will follow up with her PCP in the [facility] system. She was discharged then from our hospital in a stable condition with explicit drug and followup care. Total discharge time spent is 40 minutes. ЮЛИЯ/LEE/ROMA DR: Chan TID: [id number] CC: [facility]
== END 2021-06-10 12:10 | disposition home or self-care (01) | DRG 371 ==
LOC: ER 17:55 → 1 SOUTH 06-08 00:41
PROVIDERS: ADMIT Internal Medicine; ATTEND Internal Medicine
DX: A04.9 Bacterial intestinal infection, unspecified (principal); N17.0 Acute kidney failure with tubular necrosis; R65.10 Systemic inflammatory response syndrome (SIRS) of non-infectious origin without acute organ dysfunction; E11.9 Type 2 diabetes mellitus without complications; K21.9 Gastro-esophageal reflux disease without esophagitis; E78.5 Hyperlipidemia, unspecified; E78.00 Pure hypercholesterolemia, unspecified; E03.9 Hypothyroidism, unspecified; F03.90 Unspecified dementia, unspecified severity, without behavioral disturbance, psychotic disturbance, mood disturbance, and anxiety; F32.A Depression, unspecified; F41.9 Anxiety disorder, unspecified; K59.09 Other constipation; R32 Unspecified urinary incontinence; M19.90 Unspecified osteoarthritis, unspecified site; Z20.822 Contact with and (suspected) exposure to COVID-19; E86.0 Dehydration; Z96.641 Presence of right artificial hip joint; Z90.710 Acquired absence of both cervix and uterus; Z79.84 Long term (current) use of oral hypoglycemic drugs; Z79.82 Long term (current) use of aspirin; Z88.2 Allergy status to sulfonamides
CPT/HCPCS: 36415; 70450; 71275; 72131; 74022; 74177; 80048; 80053; 80076; 81001; 82550; 82947; 83605; 83615; 83690; 83735; 83880; 84443; 84484; 85007; 85025; 85027; 85379; 85610; 87040; 87426; 87804; 93005; 93970; 94640; 96365; 96367; J0696; J1200; J1650; J1956; J3490; J7030; J7042; J7120; Q9966; Q9967; U0003; 97110; 97530; 97535; 99285-25

== ENCOUNTER 2021-07-21 01:44 | Inpatient (IN) | payer MEDICARE ==
[~2021-07-21] VITALS: Ht 165.1 cm; Wt 85.7 kg
[~2021-07-21 01:44] MED LIST: ASPI-630 PO; CARB1DRO40 EACHEYE; CHOL400T36 PO; DOCU100C28 PO; DONE5TAB7 PO; FAMO20TA5 PO; GLIP5TAB10 PO; LEVO75TA5 PO; MULT-245 PO; OMEG1CAP50 PO; OXYB5TAB10 PO; POLY2500 PO; PRIM50TA24 PO; SIMV80TA17 PO; [UNRECOGNIZED DRUG - CODE] PO
--- NOTE | 2021-07-21 01:57 | PHYS DOC ---
Past History Past Medical History: Anxiety, Arthritis, Dementia, Depression, Diabetes Past Surgical History: No Surgical History Alcohol Use: None Adult General Chief Complaint Chief Complaint: SYNCOPE HPI HPI Patient is a 89-year-old female presenting via EMS for syncope. Patient was reportedly at home with daughter whom she lives with when she was being observed on the commode having a bowel movement. Patient reports passing a large amount of stool and subsequently having a near syncopal episode in which she became briefly unresponsive for several seconds before waking back up. Patient again evacuated a large amount of stool shortly afterwards with similar syncopal symptoms concerning daughter prompting her to call EMS. On arrival, patient was found to be hypotensive with BP 100/50 otherwise hemodynamically stable. There were no falls or other concerning motor or sensory or neuro findings but patient was subsequently loaded into ambulance for ER evaluation. Patient typically has all care performed at [facility] but they were on diversion and so, patient arrived at our ER. On arrival, patient reports chronic left hip pain otherwise only new acute issues are nausea, x1 episode of emesis, and several episodes of diarrhea in the past 12 hours. She admits she typically has issues with constipation and states that family member gave her a laxative and ever since, has had several episodes of looser stools than usual. It was reported by EMS that patient did have an observed nonbloody nonbilious episode of emesis while in route. Patient states she cannot remember entirety of her medical history, is not on any blood thinners, she is fully vaccinated against COVID-19 with no obvious sick contacts or recent travel Review of Systems Review of Systems Fourteen body systems of review of systems have been reviewed. See HPI for pertinent positives and negative responses, other arana all other systems are negative, non-pertinent or non-contributory Allergies Allergies Allergies Coded Allergies Type Severity Reaction Last Updated Verified Sulfa (Sulfonamide Antibiotics) Allergy Intermediate 06/07/21 Yes iohexol Allergy Unknown 06/09/21 Yes Physical Exam Physical Exam Constitutional: Well developed, age-appropriate, well nourished, no acute distress, non-toxic appearance. HENT: Normocephalic, atraumatic, bilateral external ears normal, oropharynx moist, no oral exudates, nose normal. Eyes: PERRLA, EOMI, conjunctiva normal, no discharge. Neck: Normal range of motion, no tenderness, supple, no stridor. Cardiovascular: Heart rate regular, sinus rhythm, no murmurs rubs or gallops Lungs & Thorax: Bilateral breath sounds clear to auscultation Abdomen: Bowel sounds normal, soft, no tenderness, no masses, no pulsatile masses. Nonsurgical abdomen, no peritoneal signs Skin: Warm, dry, no erythema, no rash. Back: No tenderness, no CVA tenderness. Extremities: No tenderness, no cyanosis, no clubbing, ROM intact, no edema. Neurologic: Alert and oriented X 3, grossly normal motor & sensory function, no focal deficits noted. Psychologic: Affect normal, judgement normal, mood normal. Current Patient Data Vital Signs Vital Signs Date Time Temp Pulse Resp B/P (MAP) Pulse Ox O2 Delivery O2 Flow Rate FiO2 07/21/21 01:49 97.4 85 18 105/53 (70) 98 Vital Signs Date Time Temp Pulse Resp B/P (MAP) Pulse Ox O2 Delivery O2 Flow Rate FiO2 07/21/21 01:49 97.4 85 18 105/53 (70) 98 Lab Results Laboratory Tests Test 07/21/21 02:00 White Blood Count 7.9 x10^3/uL Red Blood Count 4.01 x10^6/uL Hemoglobin 12.8 g/dL Hematocrit 39.3 % Mean Corpuscular Volume 98 fL Mean Corpuscular Hemoglobin 32 pg Mean Corpuscular Hemoglobin Concent 33 g/dL Red Cell Distribution Width 14.2 % Platelet Count 251 x10^3/uL Neutrophils (%) (Auto) 72 % Lymphocytes (%) (Auto) 19 % Monocytes (%) (Auto) 7 % Eosinophils (%) (Auto) 2 % Basophils (%) (Auto) 0 % Neutrophils # (Auto) 5.7 x10^3uL Lymphocytes # (Auto) 1.5 x10^3/uL Monocytes # (Auto) 0.5 x10^3/uL Eosinophils # (Auto) 0.1 x10^3/uL Basophils # (Auto) 0.0 x10^3/uL Sodium Level 126 mmol/L Potassium Level 4.9 mmol/L Chloride Level 94 mmol/L Carbon Dioxide Level 18 mmol/L Anion Gap 14 Blood Urea Nitrogen 27 mg/dL Creatinine 1.2 mg/dL Estimated GFR (Cockcroft-Gault) 42.3 BUN/Creatinine Ratio 23 Glucose Level 159 mg/dL Calcium Level 9.2 mg/dL Total Bilirubin 0.7 mg/dL Aspartate Amino Transf (AST/SGOT) 54 U/L Alanine Aminotransferase (ALT/SGPT) 35 U/L Alkaline Phosphatase 189 U/L Troponin I High Sensitivity 10 ng/L Total Protein 6.2 g/dL Albumin 2.8 g/dL Albumin/Globulin Ratio 0.8 Current Medications Medications (Trade) Dose Ordered Sig/Gilbert Route PRN Reason Start Time Stop Time Status Last Admin Dose Admin Sodium Chloride 500 ml @ 500 mls/hr 1X ONCE IV 07/21/21 02:30 07/21/21 03:29 07/21/21 02:26 Ondansetron HCl (Zofran) 4 mg 1X ONCE IVP 07/21/21 02:30 07/21/21 02:31 DC 07/21/21 02:26 Sodium Chloride 500 ml @ 500 mls/hr 1X ONCE IV 07/21/21 03:30 07/21/21 04:29 EKG EKG EKG ordered and interpreted by myself at 0153 hours as sinus rhythm at 85 bpm, unremarkable intervals, left axis deviation, T wave inversion noted in lead I and aVL, no STEMI Radiology/Procedures Radiology/Procedures Standard chest x-ray ordered and initially interpreted by myself prior to official radiologist read as no acute cardiopulmonary process Heart Score C/O Chest Pain: No Risk Factors: Risk Factors: DM, Current or recent (<one month) smoker, HTN, HLP, family history of CAD, obesity. Risk Scores: Risk Factors: DM, Current or recent (<one month) smoker, HTN, HLP, family history of CAD, obesity. Course & Med Decision Making Course & Med Decision Making Airway patent, breathing unlabored, IV access and vitals obtained concerning for slight hypotension only HPI physical exam comprehensive ER work-up nonconcerning for any emergent or surgical issues Patient's blood pressure improved with total of 1 L IV normal saline administration. This was likely low due to hypovolemic state secondary to recent senna use and subsequent diarrhea. Patient likely vasovagal causing syncopal episode while on commode Patient also found to have electrolyte abnormalities that were disclosed with her and daughter at bedside, this is a known issue per daughter patient has tendency to increase large amounts of free water. Judicious water intake and close PCP follow-up for recheck advised I did disclose and recommend need for hospital admission given syncopal symptoms and need for continued inpatient medical management but patient's daughter is a nurse and feels comfortable taking patient home for continued observation and close outpatient follow-up with PCP As such, strict return precautions were discussed at length with good understanding verbalized by patient and daughter, all questions and concerns addressed prior to ER departure Osielon Disclaimer Dragon Disclaimer This electronic medical record was generated, in whole or in part, using a voice recognition dictation system. Departure Departure: Impression: Primary Impression: Syncope Additional Impressions: Vaso vagal episode Diarrhea Electrolyte and fluid disorder Disposition: HOME / SELF CARE / HOMELESS Condition: IMPROVED Referrals: MATI GIRON (PCP) Additional Instructions: As discussed prior to ER departure, your presenting symptoms were likely due to a vasovagal episode. This was likely due to diarrhea and hypovolemic state. You were given IV fluid which helped improve your blood pressure and subsequent symptoms. In addition, it was disclosed that your sodium and chloride levels were low, this is likely due to reported increase in p.o. water intake. Provided IV fluid containing sodium and chloride and should help elevate levels, judicious use of p.o. water intake going forward is advised with close outpatient follow-up for repeat electrolyte levels are recommended. In addition, discussion was had whether or not you would benefit from hospital admission. This was offered and recommended but alternatively, close outpatient follow-up was chosen. As such, it is recommended that you review need for outpatient echocardiogram and other potential tests typical for syncopal episodes be performed in upcoming 7 days. If any concerning signs or symptoms present prior to outpatient follow-up please do not hesitate to come back for repeat evaluation. It was a pleasure to take care of you and I wish you the best going forward Problem Qualifiers BJ ELLIOTT DO Jul 21, 2021 01:57
[2021-07-21] MEDS ORDERED: ONDANSETRON PF 4 MG/2 ML VIAL. IVP ONE (02:30)
[2021-07-21] MEDS ORDERED: IV NORMAL SALINE 500ML 500 ML IV ONE ×3 (02:30→16:45)
[2021-07-21 02:42] LABS: BASO % 0 % (0-3); EOS # 0.1 x10^3/uL (0.0-0.7); EOS % 2 % (0-3); HEMATOCRIT 39.3 % (36.0-47.0); HEMOGLOBIN 12.8 g/dL (12.0-15.5); LYMPH # 1.5 x10^3/uL (1.0-4.8); LYMPH % 19 % (24-48); MEAN CORPUSCULAR HEMOGLOBIN 32 pg (25-35); MEAN CORPUSCULAR HGB CONC 33 g/dL (31-37); MEAN CORPUSCULAR VOLUME 98 fL (79-100); MONO # 0.5 x10^3/uL (0.0-1.1); MONO % 7 % (0-9); NEUT # 5.7 x10^3uL (1.8-7.7); NEUT % 72 % (31-73); PLATELET COUNT 251 x10^3/uL (140-400); RED BLOOD COUNT 4.01 x10^6/uL (3.50-5.40); RED CELL DISTRIBUTION WIDTH 14.2 % (11.5-14.5); WHITE BLOOD COUNT 7.9 x10^3/uL (4.0-11.0)
[2021-07-21 02:58] LABS: CALCIUM 9.2 mg/dL (8.5-10.1); CREATININE 1.2 mg/dL (0.6-1.0); GFR 42.3; POTASSIUM 4.9 mmol/L (3.5-5.1)
[2021-07-21 03:03] LABS: ALBUMIN 2.8 g/dL (3.4-5.0); ALBUMIN/GLOBULIN RATIO 0.8 (1.0-1.7); TOTAL BILIRUBIN 0.7 mg/dL (0.2-1.0); TOTAL PROTEIN 6.2 g/dL (6.4-8.2)
[2021-07-21] MEDS ORDERED: NITROGLYCERIN SUBLINGUAL 0.4 MG BOTTLE OF 25. SL PRN (03:30)
[2021-07-21] MEDS ORDERED: ACETAMINOPHEN 325 MG TABLET PO PRN (03:30)
--- NOTE | 2021-07-21 03:50 | RAD ---
EXAM: CHEST ONE VIEW. HISTORY: Syncope. COMPARISON: 06/09/2021. FINDINGS: A frontal view of the chest is obtained. There are mild linear opacities in the left base. There is no pneumothorax or pleural effusion. The h eart is not enlarged. Calcified lymph nodes likely reflect old granulomatous disease. Cholecystectomy clips are noted. IMPRESSION: 1. Mild left basilar atelectasis or infiltrate. Electronically signed by: Sofiya Carey MD (07/21/2021 3:48 AM) [id number]
[2021-07-21] MEDS ORDERED: traMADol 50 MG TABLET PO ONE (04:00)
[2021-07-21] MEDS ORDERED: FAMOTIDINE 20 MG/2 ML VIAL IVP ONE (05:00)
--- NOTE | 2021-07-21 06:27 | EKG ---
[address] [address] Test Date: 2021-07-21 Test Time: 01:51:20 Pat Name: BEST Department: Room: Gender: F Comptometer Operator: ashley user : [id number] Requested By: BJ ELLIOTT Order Number: [id number] Reading MD: Paul Armstrong MD Measurements Intervals [place] Rate: 85 P: VA: QRS: -36 QRSD: 108 T: 121 QT: 354 QTc: 421 Interpretive Statements SR LAFB CONSIDER LVH POOR R WAVE PROGRESSION Electronically Signed On 07-27-2021 15:21:11 [employer] OPERATOR by Paul Armstrong MD
[2021-07-21 12:46] VITALS: BP 122/73
[2021-07-21] MEDS ORDERED: TRAM50TA PO (13:00)
[2021-07-21 15:00] VITALS: BP 127/69
[2021-07-21] MEDS ORDERED: IV NORMAL SALINE 1,000ML 1,000 ML IV ONE (16:45)
[2021-07-21] MEDS ORDERED: traMADol 50 MG TABLET PO PRN (16:45)
[2021-07-21] MEDS: IV NORMAL SALINE 1,000ML 1,000 ML IV SCH ×2 (16:54→22:51)
[2021-07-21] MEDS: glipiZIDE 5 MG TABLET PO SCH (17:03)
--- NOTE | 2021-07-21 17:26 | HP ---
DATE OF SERVICE: 07/21/2021 ADMIT DATE: 07/21/2021 HISTORY OF PRESENT ILLNESS: The patient is an 89-year-old female patient who presented today via EMS for syncope. The patient was reportedly at home with daughter whom she lives with when she was being observed on the commode having a bowel movement. The patient reports passing a large amount of stool and subsequently having a near syncopal episode, in which, she became briefly unresponsive for several seconds before waking back up again. The patient again evacuated a large amount of stool shortly afterwards with similar syncopal symptoms, concerning daughter, who promptly called the EMS. On arrival, the patient was found to be hypotensive with a blood pressure of 100/50, otherwise hemodynamically stable. There were no falls or other concerning motor or sensorineural finding. The patient was subsequently loaded into an ambulance for ER evaluation. The patient typically has all care performed at [facility], but they were on diversion and so, the patient arrived at our Emergency Room. On arrival, the patient reports chronic left hip pain. Otherwise, only new acute issue are nausea x1 episode of emesis and several episodes of diarrhea over the last 12 hours. She admits she typically has issues with constipation and states that family members gave her a laxative and ever since has had several episodes of looser stools than usual. It was reported by EMS that the patient did have an observed nonbloody and nonbilious episode of emesis while en route. The patient states she cannot remember the entirety of her medical history, is not on any blood thinner. She is fully vaccinated against COVID-19 with no obvious sick contacts or recent travel. She was extensively investigated in the Emergency Room with labs and imaging. Her CBC was unremarkable. Her chemistry showed that she has hyponatremia and impaired kidney function with a BUN of 27, creatinine 1.2. Her blood sugar was high and her alkaline phosphatase was also elevated. She has a low albumin at 2.8. Her COVID-19 by PCR was negative. She did have a chest x-ray that was unremarkable. It showed mild left basilar atelectasis or infiltrate. The patient was admitted with a syncopal episode, likely due to dehydration and has a possible vasovagal syncope, diarrhea, hyponatremia, and dehydration. She was treated with IV fluid and has in fact received about a liter of normal saline together with tramadol and famotidine, and was admitted for further evaluation and treatment. PAST MEDICAL HISTORY: Significant for gastroesophageal reflux disease, type 2 diabetes mellitus, hypothyroidism, has chronic constipation, hyperlipidemia, generalized deconditioning, and bladder incontinence. PAST SURGICAL HISTORY: Significant for cholecystectomy, right total hip arthroplasty and total abdominal hysterectomy, bilateral salpingo-oophorectomy. ALLERGIES: SHE IS ALLERGIC TO SULFA DRUGS. FAMILY HISTORY: Noncontributory. SOCIAL HISTORY: She is , currently lives with her daughter and son-in-law. She never smoked, never drank alcohol, does not use any drugs. She is a retired registered nurse. MEDICATIONS: She is currently on following medications: She is on Aricept 5 mg once a day, simvastatin 80 mg at bedtime, omega 3 fatty acid one capsule daily, aspirin 81 mg once a day, tramadol 25 mg every 6 hours, Mysoline 50 mg daily, carboxymethylcellulose sodium 1 drop to both eyes 6 times a day. She is on Colace 100 mg twice a day, famotidine 20 mg twice a day, glipizide 5 mg twice a day with meals. She is on levothyroxine 75 mcg once a day, oxybutynin chloride 5 mg daily, cholecalciferol, vitamin D3 at 800 units p.o. daily, multivitamin with mineral 1 tablet once a day, and polyethylene glycol 17 g daily. PHYSICAL EXAMINATION: GENERAL: On arrival to the Emergency Room, the patient looked somewhat pale, not jaundiced, cyanosed. No lymphadenopathy, no thyromegaly, no jugular venous distention, no limb edema. VITAL SIGNS: Her heart rate was 85, blood pressure was 105/53, temperature was 97.4, respiratory rate was 18, and oxygen saturation was 98% on room air. HEAD, EYES, EARS, NOSE, AND THROAT: Normocephalic, atraumatic. NECK: Supple. HEART: Showed normal first and second heart sounds. No gallop, rub, or murmur. CHEST: Clear to auscultation, no crepitation or rhonchi. ABDOMEN: Distended, soft, nontender. There is no guarding or rigidity. No organomegaly. All hernial orifices intact. Bowel sounds normal. NEUROLOGIC: She is demented, but without any obvious lateralizing sign. All her cranial nerves intact. She moves extremities without difficulty. LABORATORY DATA: On arrival showed a white cell count 7900, hemoglobin 12.8, hematocrit 39, MCV 98, and platelet count 251,000. Her chemistry showed a serum sodium 126, potassium 4.9, chloride 94, bicarbonate 18, anion gap of 14, BUN 27, creatinine 1.2. Estimated GFR was 43 mL per minute. Her glucose 159, calcium was 9.2. Total bilirubin, AST, ALT, alkaline phosphatase were normal. Total protein 6.2, albumin was 2.8. ASSESSMENT AND PLAN: So, the patient was admitted with possible vasovagal syncope versus dehydration, diarrhea, hyponatremia and the patient has multiple other medical problems including type 2 diabetes mellitus, gastroesophageal reflux disease, hypothyroidism, chronic constipation, hyperlipidemia, generalized deconditioning, bladder incontinence. My plan is to rehydrate her aggressively and repeat her labs again tomorrow. If her kidney function improved and she has had no further syncopal episode and her diarrhea subsided, she can be discharged home. LESLEY DR: Teresa TID: [id number]
[2021-07-21] MEDS ORDERED: IV NORMAL SALINE 1,000ML 1,000 ML IV SCH (18:00)
[2021-07-21] MEDS ORDERED: POLYVINYL ALCOHOL 1.4% OPHTH SOLUTION 15ML BOTTLE. OU SCH (19:00)
[2021-07-21 19:04] VITALS: BP 116/67
[2021-07-21] MEDS: MULTIVITAMIN I-VITE TABLET. PO SCH (19:34)
[2021-07-21] MEDS: FAMOTIDINE 20 MG TABLET PO SCH (19:34)
[2021-07-21] MEDS ORDERED: POLYVINYL ALCOHOL 1.4% OPHTH SOLUTION 15ML BOTTLE. OU PRN (20:15)
[2021-07-21] MEDS ORDERED: SIMVASTATIN 40 MG TABLET. PO SCH (21:00)
[2021-07-22] MEDS ORDERED: OLANZapine IM 10 MG VIAL. IM PRN (00:45)
[2021-07-22 01:24] VITALS: BP 123/69
[2021-07-22] MEDS ORDERED: LEVOTHYROXINE 75 MCG TABLET PO SCH (06:00)
[2021-07-22 06:12] VITALS: BP 131/70
[2021-07-22 07:22] LABS: ALBUMIN 2.1 g/dL (3.4-5.0); ALBUMIN/GLOBULIN RATIO 0.6 (1.0-1.7); CALCIUM 8.2 mg/dL (8.5-10.1); GFR 52.2; POTASSIUM 4.8 mmol/L (3.5-5.1); TOTAL BILIRUBIN 0.4 mg/dL (0.2-1.0); TOTAL PROTEIN 5.4 g/dL (6.4-8.2)
[2021-07-22] MEDS: FAMOTIDINE 20 MG TABLET PO SCH (08:15)
[2021-07-22] MEDS: glipiZIDE 5 MG TABLET PO SCH (08:16)
[2021-07-22] MEDS: MULTIVITAMIN I-VITE TABLET. PO SCH (08:16)
[2021-07-22] MEDS ORDERED: OMEGA-3 FATTY ACIDS/FISH OIL 1,000 MG CAPSULE. PO SCH (09:00)
[2021-07-22] MEDS ORDERED: OXYBUTYNIN CHLORIDE 5 MG TABLET PO SCH (09:00)
[2021-07-22] MEDS ORDERED: DONEPEZIL HCL 5 MG TABLET. PO SCH (09:00)
[2021-07-22] MEDS ORDERED: ASPIRIN CHEWABLE 81 MG TABLET. PO SCH (09:00)
[2021-07-22] MEDS ORDERED: CHOLECALCIFEROL (VITAMIN D3) 1,000 UNIT TABLET PO SCH (09:00)
[2021-07-22] MEDS ORDERED: PRIMIDONE 50 MG TABLET PO SCH (09:00)
--- NOTE | 2021-07-22 11:18 | DS ---
DATE OF DISCHARGE: 07/22/2021 ATTENDING PHYSICIAN: Dr. Talavera and Dr. Melendrez. FINAL DISCHARGE DIAGNOSES: 1. Vasovagal syncope. 2. Underlying dementia. 3. Type 2 diabetes. 4. Gastroesophageal reflux disease. 5. Hypothyroidism, on replacement. 6. Chronic constipation. 7. Generalized deconditioning. 8. Bladder incontinence. 9. Hyponatremia, corrected. 10. Hyperlipidemia. HISTORY AND PHYSICAL: The patient is an 89-year-old female with multiple medical issues, care for by her daughter at home. We had her here last month with an episode of gastroenteritis. She had a syncopal episode following straining on the toilet. She had a vasovagal episode. She was admitted for further treatment and evaluation. PHYSICAL EXAMINATION: Please see the dictated note. PERTINENT LABORATORY AND X-RAY STUDIES: Admission hemoglobin was 12.8 g/dL, white count 7900. Sodium on admission was 126 mEq with gentle hydration. Repeated the next day was up to 133 mEq per liter. Creatinine was 1.2 on admission, down to 1.0 mg/dL, potassium 4.8 mEq. Transaminases normal. Cardiac enzymes negative for coronary ischemia. COURSE IN THE HOSPITAL: The patient was admitted. She was given gentle IV hydration. She had no obvious fractures or dislocations, which is fortunate. She had mild degenerative arthritis and low back pain. Home meds were continued. We did have Physical Therapy see her in consultation. Their recommendations are for a higher level of care than what she is getting at home. The daughter was contacted. She is the primary caregiver. She declined at this time. She insisted on taking her home. Therefore, on the second hospital day, she was discharged home with no changes on her medications. She should continue her scheduled Aricept, Zocor, omega 3 fish oil, aspirin 81 mg daily, tramadol p.r.n. pain, Mysoline, methylcellulose tears, docusate, Pepcid, glipizide, Synthroid, oxybutynin, vitamin D, multivitamin and MiraLax, dose is unchanged. She is a DNR per advanced directive. She will [facility]. Once again, I offered rehab at a higher level of care. The daughter declined. I did take the liberty of writing her a script for a standard wheelchair. The patient was then discharged from our hospital in stable condition with explicit drug and followup care. Total discharge time spent [address]: Chan TID: [id number]
== END 2021-07-22 12:00 | disposition home or self-care (01) | DRG 312 ==
LOC: ER 01:44 → 1 SOUTH 03:30
PROVIDERS: ADMIT Internal Medicine; ATTEND Internal Medicine
DX: R55 Syncope and collapse (principal); E87.1 Hypo-osmolality and hyponatremia; J98.11 Atelectasis; E03.9 Hypothyroidism, unspecified; E11.9 Type 2 diabetes mellitus without complications; E78.5 Hyperlipidemia, unspecified; E86.0 Dehydration; Z66 Do not resuscitate; F03.90 Unspecified dementia, unspecified severity, without behavioral disturbance, psychotic disturbance, mood disturbance, and anxiety; Z20.822 Contact with and (suspected) exposure to COVID-19; G89.29 Other chronic pain; K21.9 Gastro-esophageal reflux disease without esophagitis; K59.09 Other constipation; M19.90 Unspecified osteoarthritis, unspecified site; R32 Unspecified urinary incontinence; Z96.641 Presence of right artificial hip joint; F32.A Depression, unspecified; F41.9 Anxiety disorder, unspecified; I95.9 Hypotension, unspecified; Z90.710 Acquired absence of both cervix and uterus; Z88.2 Allergy status to sulfonamides; Z91.018 Allergy to other foods
CPT/HCPCS: 36415; 71045; 80053; 84484; 85025; 87426; 93005; 96374; 96375; J2405; J3490; J7040; U0003; 97530; 99285-25; J7030

== ENCOUNTER 2021-08-13 15:47 | Inpatient (IN) | payer MEDICARE ==
[~2021-08-13] VITALS: Ht 165.1 cm; Wt 77.1 kg
[~2021-08-13 15:47] MED LIST changes: +TRAM50TA PO
--- NOTE | 2021-08-13 16:16 | PHYS DOC ---
Past History Past Medical History: Anxiety, Arthritis, Dementia, Depression, Diabetes Additional Past Medical Histor: tremor,chronic back pain (RIGO HENDRICKS APRN) Past Surgical History: No Surgical History (RIGO HENDRICKS APRN) Smoking: Non-smoker Alcohol Use: None Drug Use: None (RIGO HENDRICKS APRN) General Adult EDM: Chief Complaint: BACK PAIN - NO INJURY HPI: HPI: Patient is an 89-year-old female who presents today via [facility] from home with a chief complaint of back pain. According to the report from EMS patient tested positive for COVID-19 last several days and she has had increased back pain and body aches since that diagnosis she also has generalized fatigue and has been having trouble getting around. Her primary pottery kiln builder is her daughter who is not available at this time for further information. Patient denies falling, she states that she is had back pain for quite some time, and in reviewing her past charts from here at [facility] she had a CT scan of her lumbar spine done in June 2021 which showed degenerative changes. (RIGO HENDRICKS APRN) Review of Systems: Review of Systems: Constitutional: Denies fever or chills Eyes: Denies change in visual acuity HENT: Denies nasal congestion or sore throat Respiratory: Denies cough or shortness of breath Cardiovascular: Denies chest pain or edema GI: Denies abdominal pain, nausea, vomiting, bloody stools or diarrhea : Denies dysuria Musculoskeletal: Back pain Integument: Denies rash Neurologic: Generalized fatigue denies headache, focal weakness or sensory changes Endocrine: Denies polyuria or polydipsia Lymphatic: Denies swollen glands Psychiatric: Denies depression or anxiety (RIGO HENDRICKS APRN) Allergies: Allergies: Allergies Coded Allergies Type Severity Reaction Last Updated Verified Sulfa (Sulfonamide Antibiotics) Allergy Intermediate 06/07/21 Yes iohexol Allergy Unknown 06/09/21 Yes (RIGO HENDRICKS APRN) Physical Exam: PE: Constitutional: Well developed, well nourished, no acute distress, non-toxic appearance. [] HENT: Normocephalic, atraumatic, bilateral external ears normal, oropharynx moist, no oral exudates, nose normal. [] Eyes: PERRLA, EOMI, conjunctiva normal, no discharge. [] Neck: Normal range of motion, no tenderness, supple, no stridor. [] Cardiovascular:Heart rate regular rhythm, no murmur [] Lungs & Thorax: Bilateral breath sounds diminished lung sounds noted in the right, left lung sounds rhonchi noted with scant amount of wheezes Abdomen: Bowel sounds normal, soft, no tenderness, no masses, no pulsatile masses. [] Skin: Warm, dry, no erythema, no rash. [] Back: No tenderness, no CVA tenderness. [] Extremities: No tenderness, no cyanosis, no clubbing, ROM intact, no edema. [] Neurologic: Alert and oriented X1, normal motor function, normal sensory function, no focal deficits noted. [] Psychologic: Affect normal, judgement normal, mood normal. [] (RIGO HENDRICKS APRN) Current Patient Data: Labs: Laboratory Tests Test 08/13/21 17:30 08/13/21 17:35 08/13/21 18:30 Influenza Type A (Rapid) Negative Influenza Type B (Rapid) Negative SARS-CoV-2 Antigen (Rapid) Positive White Blood Count 3.6 x10^3/uL Red Blood Count 3.31 x10^6/uL Hemoglobin 10.5 g/dL Hematocrit 32.4 % Mean Corpuscular Volume 98 fL Mean Corpuscular Hemoglobin 32 pg Mean Corpuscular Hemoglobin Concent 33 g/dL Red Cell Distribution Width 15.2 % Platelet Count 196 x10^3/uL Neutrophils (%) (Auto) 64 % Lymphocytes (%) (Auto) 11 % Monocytes (%) (Auto) 25 % Eosinophils (%) (Auto) 0 % Basophils (%) (Auto) 0 % Neutrophils # (Auto) 2.3 x10^3uL Lymphocytes # (Auto) 0.4 x10^3/uL Monocytes # (Auto) 0.9 x10^3/uL Eosinophils # (Auto) 0.0 x10^3/uL Basophils # (Auto) 0.0 x10^3/uL Platelet Estimate Pending Sodium Level 139 mmol/L Potassium Level 4.4 mmol/L Chloride Level 101 mmol/L Carbon Dioxide Level 28 mmol/L Anion Gap 10 Blood Urea Nitrogen 48 mg/dL Creatinine 1.3 mg/dL Estimated GFR (Cockcroft-Gault) 38.6 BUN/Creatinine Ratio 37 Glucose Level 175 mg/dL Calcium Level 8.2 mg/dL Total Bilirubin 0.4 mg/dL Aspartate Amino Transf (AST/SGOT) 58 U/L Alanine Aminotransferase (ALT/SGPT) 36 U/L Alkaline Phosphatase 93 U/L Total Protein 5.8 g/dL Albumin 2.6 g/dL Albumin/Globulin Ratio 0.8 Urine Collection Type U cath Urine Color Yellow Urine Clarity Clear Urine pH 5.5 Urine Specific Sheldon 1.025 Urine Protein 30 mg/dl Urine Glucose (UA) Neg mg/dL Urine Ketones (Stick) Neg mg/dL Urine Blood Neg Urine Nitrite Neg Urine Bilirubin Neg Urine Urobilinogen Dipstick 0.2 mg/dL Urine Leukocyte Esterase Neg Urine RBC 3-5 /HPF Urine WBC 1-4 /HPF Urine Bacteria 0 /HPF Current Medications Medications (Trade) Dose Ordered Sig/Gilbert Route PRN Reason Start Time Stop Time Status Last Admin Dose Admin Sodium Chloride 1,000 ml @ 1,000 mls/hr 1X ONCE IV 08/13/21 19:15 08/13/21 20:14 DC Vital Signs: Vital Signs Date Time Temp Pulse Resp B/P (MAP) Pulse Ox O2 Delivery O2 Flow Rate FiO2 08/13/21 20:43 99.6 70 18 129/67 (87) 94 Room Air 08/13/21 19:00 71 22 93 08/13/21 18:35 73 95 08/13/21 17:25 73 20 139/70 (93) 94 08/13/21 16:50 76 18 144/72 (96) 94 08/13/21 16:20 75 20 116/64 (81) 95 08/13/21 15:50 74 18 126/55 (78) 95 08/13/21 15:50 98.8 72 16 126/55 (78) 97 Vital Signs Date Time Temp Pulse Resp B/P (MAP) Pulse Ox O2 Delivery O2 Flow Rate FiO2 08/13/21 15:50 98.8 72 16 126/55 (78) 97 (RIGO HENDRICKS APRN) EKG: EKG: [] (RIGO HENDRICKS APRN) Radiology/Procedures: Radiology/Procedures: REASON: r/o covid pneumonia and thorasic compression fx PROCEDURE: CT CHEST WO CONTRAST PQRS Compliance Statement: One or more of the following individualized dose reduction techniques were utilized for this examination: 1. Automated exposure control 2. Adjustment of the mA and/or kV according to patient size 3. Use of iterative reconstruction technique CT THORACIC SPINE RECONSTRUCT, CT THORAX WO 08/13/2021 5:09 PM Indication: Covid pneumonia. Thoracic compression fracture COMPARISON: CT chest 06/09/2021. TECHNIQUE: Multiple axial CT images of the chest were obtained without venous contrast. Coronal and sagittal reformats are provided. 2-D reconstructions of the thoracic spine were obtained. FINDINGS: Calcified left thyroid nodule measures 7 mm. There is a 10 mm right thyroid nodule. Calcified mediastinal and hilar lymph nodes suggest sequela of prior granulomatous exposure. Three-vessel coronary vascular calcifications are present. There are no pathologically enlarged axillary, mediastinal or hilar lymph nodes. Heart size is within normal limits. Thoracic aorta is normal in course and caliber. There is no significant pericardial effusion. Thoracic esophagus is normal in appearance. Anterior chest wall appears intact. Mild calcified atherosclerotic plaque involving the thoracic aorta. There is mild bibasilar subsegmental atelectasis. In the left upper lobe there is a solid noncalcified pulmonary nodule measuring 6 mm. This finding stable from 06/09/2021. There are no pleural effusions, pulmonary vascular congestion or pneumothorax. Lungs are clear without focal airspace consolidation. Central airways are clear. There is a cyst in the lateral segment left hepatic lobe measuring 7.9 cm. Calcifications within the liver and spleen suggest sequela prior granulomatous exposure. Small hiatal hernia. Alignment of the thoracic spine is normal. Mild multilevel disc height loss is identified. There is moderate to advanced disc height loss at C5-C6. Minimal anterior wedging of T7. Moderate disc height loss at T7-T8, T8-T9 and T9-T10 with vacuum disc phenomena. Moderate thoracic spondylosis at the thoracolumbar junction. No acute fracture is identified.. No paraspinal soft tissue mass. IMPRESSION: There is bibasilar subsegmental atelectasis. No focal consolidative changes are identified. 6 mm solid noncalcified pulmonary nodule in the left upper lobe. Fleischner guidelines for incidentally detected pulmonary nodules suggests no routine follow-up for low risk patients and optional CT at 12 months for high risk patients with solid noncalcified pulmonary nodules less than 6 mm in size. Findings stable since prior examination of 06/09/2021 No acute compression fracture of the thoracic spine. Electronically signed by: María Elena Mcnamara MD (08/13/2021 5:43 PM) [facility][] (RIGO HENDRICKS APRN) Heart Score: C/O Chest Pain: N/A Risk Factors: Risk Factors: DM, Current or recent (<one month) smoker, HTN, HLP, family history of CAD, obesity. Risk Scores: Score 0 - 3: 2.5% MACE over next 6 weeks - Discharge Home Score 4 - 6: 20.3% MACE over next 6 weeks - Admit for Clinical Observation Score 7 - 10: 72.7% MACE over next 6 weeks - Early Invasive Strategies (RIGO HENDRICKS APRN) Course & Med Decision Making: Course & Med Decision Making Pertinent Labs and Imaging studies reviewed. (See chart for details) 2014 reviewed laboratory and radiology results patient is unable to take care of herself at home and lives with her daughter which has not called to check up on her mom, will admit patient for weakness. Did speak to Dr. Dyson and he is excepting of this patient for admission. (RIGO HENDRICKS APRN) Dragon Disclaimer: Dragon Disclaimer: This electronic medical record was generated, in whole or in part, using a voice recognition dictation system. (RIGO HENDRICKS APRN) Departure Departure: Impression: Primary Impression: COVID-19 Additional Impression: Generalized muscle weakness Disposition: ADMITTED INPATIENT Admitting Physician: Avni Talavera (RIGO HENDRICKS APRN) Condition: GUARDED Referrals: MATI GIRON (PCP) Attending Signature Attending Signature I have participated in the care of this patient and I have reviewed and agree with all pertinent clinical information above including history, exam, and recommendations. (ANJALI RENDON MD) RIGO HENDRICKS APRN Aug 13, 2021 16:16 ANJALI RENDON MD Aug 16, 2021 21:19
--- NOTE | 2021-08-13 17:45 | RAD ---
PQRS Compliance Statement: One or more of the following individualized dose reduction techniques were utilized for this examinat ion: 1. Automated exposure control 2. Adjustment of the mA and/or kV according to patient size 3. Use of iterative reconstruction technique CT THORACIC SPINE RECONSTRUCT, CT THORAX WO 08/13/2021 5:09 PM Indication: Covid pneumonia. Thoracic compression fracture COMPARISON: CT chest 06/09/2021. TECHNIQUE: Multiple axial CT images of the chest were obtained without venous contrast. Coronal and s agittal reformats are provided. 2-D reconstructions of the thoracic spine were obtained. FINDINGS: Calcified left thyroid nodule measures 7 mm. There is a 10 mm right thyroid nodule. Calcified mediastinal and hilar lymph nodes suggest sequela of prior granulomatous exposure. Three-ve ssel coronary vascular calcifications are present. There are no pathologically enlarged axillary, med iastinal or hilar lymph nodes. Heart size is within normal limits. Thoracic aorta is normal in course and caliber. There is no significant pericardial effusion. Thoracic esophagus is normal in appearanc e. Anterior chest wall appears intact. Mild calcified atherosclerotic plaque involving the thoracic a tonny. There is mild bibasilar subsegmental atelectasis. In the left upper lobe there is a solid noncalcifie d pulmonary nodule measuring 6 mm. This finding stable from 06/09/2021. There are no pleural effusions , pulmonary vascular congestion or pneumothorax. Lungs are clear without focal airspace consolidation . Central airways are clear. There is a cyst in the lateral segment left hepatic lobe measuring 7.9 cm. Calcifications within the liver and spleen suggest sequela prior granulomatous exposure. Small hiatal hernia. Alignment of the thoracic spine is normal. Mild multilevel disc height loss is identified. There is m oderate to advanced disc height loss at C5-C6. Minimal anterior wedging of T7. Moderate disc height l oss at T7-T8, T8-T9 and T9-T10 with vacuum disc phenomena. Moderate thoracic spondylosis at the thora columbar junction. No acute fracture is identified.. No paraspinal soft tissue mass. IMPRESSION: There is bibasilar subsegmental atelectasis. No focal consolidative changes are identified. 6 mm solid noncalcified pulmonary nodule in the left upper lobe. Fleischner guidelines for incidental ly detected pulmonary nodules suggests no routine follow-up for low risk patients and optional CT at 12 months for high risk patients with solid noncalcified pulmonary nodules less than 6 mm in size. Fi ndings stable since prior examination of 06/09/2021 No acute compression fracture of the thoracic spine. Electronically signed by: María Elena Mcnamara MD (08/13/2021 5:43 PM) [facility]
[2021-08-13 18:15] LABS: BASO % 0 % (0-3); CALCIUM 8.2 mg/dL (8.5-10.1); CREATININE 1.3 mg/dL (0.6-1.0); EOS % 0 % (0-3); GFR 38.6; HEMATOCRIT 32.4 % (36.0-47.0); HEMOGLOBIN 10.5 g/dL (12.0-15.5); LYMPH # 0.4 x10^3/uL (1.0-4.8); LYMPH % 11 % (24-48); MEAN CORPUSCULAR HEMOGLOBIN 32 pg (25-35); MEAN CORPUSCULAR HGB CONC 33 g/dL (31-37); MEAN CORPUSCULAR VOLUME 98 fL (79-100); MONO # 0.9 x10^3/uL (0.0-1.1); MONO % 25 % (0-9); NEUT # 2.3 x10^3uL (1.8-7.7); NEUT % 64 % (31-73); PLATELET COUNT 196 x10^3/uL (140-400); POTASSIUM 4.4 mmol/L (3.5-5.1); RED BLOOD COUNT 3.31 x10^6/uL (3.50-5.40); RED CELL DISTRIBUTION WIDTH 15.2 % (11.5-14.5); WHITE BLOOD COUNT 3.6 x10^3/uL (4.0-11.0)
[2021-08-13 18:23] LABS: ALBUMIN 2.6 g/dL (3.4-5.0); ALBUMIN/GLOBULIN RATIO 0.8 (1.0-1.7); TOTAL BILIRUBIN 0.4 mg/dL (0.2-1.0); TOTAL PROTEIN 5.8 g/dL (6.4-8.2)
[2021-08-13 18:33] LABS: INFLUENZA A PATIENT NEGATIVE (NEGATIVE); INFLUENZA B PATIENT NEGATIVE (NEGATIVE)
[2021-08-13] MEDS ORDERED: IV NORMAL SALINE 1,000ML 1,000 ML IV ONE (19:15)
[2021-08-13 19:51] LABS: BACTERIA,URINE 0 /HPF (0-FEW); BILIRUBIN,URINE NEG (NEG); CLARITY,URINE CLEAR; COLOR,URINE YELLOW; GLUCOSE,URINE NEG (NEG); NITRITE,URINE NEG (NEG); UROBILINOGEN,URINE 0.2 mg/dL (0.2 mg/dL)
[2021-08-13] MEDS ORDERED: ACETAMINOPHEN 325 MG TABLET PO PRN (20:30)
[2021-08-13 20:32] LABS: % BANDS 1 % (0-9); % LYMPHS 13 % (24-48); % MONOS 25 % (0-10); % SEGS 61 % (35-66); PLT ESTIMATE ADEQUATE (ADEQUATE)
[2021-08-13] MEDS ORDERED: guaiFENesin/CODEINE 100mg/10mg 5 ML LIQUID PO PRN (21:45)
[2021-08-13] MEDS ORDERED: AZITHROMYCIN 250 MG TABLET. PO ONE (21:45)
--- NOTE | 2021-08-13 22:00 | NUR ---
ADMISSION: The patient, MICHELLE, BEST Costa, 89 y/o, F admitted by MERY MATHIS MD, was given written information regarding hospital policies, unit procedures and contact persons. Pt arrived to room 125 via gurney, accompanied by [facility] and ED staff. Pt here for progressive weakness, body aches, and COVID+. Pt placed in contact and airborne isolation. Pt is A/O to self only, pleasant but unsure of why she is here. Dr. Mathis notified of pt arrival and orders received. Unable to orient pt to unit, routines, or POC. Bed in lowest position, alarmed, with call light in reach. Valuables were checked and logged. Left in room with pt.
[2021-08-13 22:16] VITALS: BP 128/70
[2021-08-13] MEDS: IV NORMAL SALINE 1,000ML 1,000 ML IV SCH (22:25)
[2021-08-14 05:42] VITALS: BP 161/68
[2021-08-14] MEDS: AZITHROMYCIN 250 MG TABLET. PO SCH (07:54)
[2021-08-14] MEDS: ZINC SULFATE 220 MG CAPSULE. PO SCH (07:54)
[2021-08-14] MEDS: ENOXAPARIN 40 MG/0.4 ML SYRINGE. SQ SCH (07:54)
[2021-08-14] MEDS: ASCORBIC ACID 1,000 MG TABLET PO SCH (07:55)
[2021-08-14] MEDS: DEXAMETHASONE SOD PHOS 4 MG/ML VIAL. IVP SCH (07:55)
[2021-08-14] MEDS: BUDESONIDE 0.5 MG/2 ML NEBU NEB SCH ×2 (08:00→21:34)
[2021-08-14] MEDS ORDERED: DEXAMETHASONE 4 MG TABLET PO SCH (08:00)
[2021-08-14] MEDS ORDERED: CHOLECALCIFEROL (VITAMIN D3) 50,000 UNIT CAPSULE PO SCH (09:00)
[2021-08-14 11:00] VITALS: BP 140/82
[2021-08-14] MEDS: IV NORMAL SALINE 1,000ML 1,000 ML IV SCH ×2 (11:26→20:44)
[2021-08-14] MEDS ORDERED: traMADol 50 MG TABLET PO PRN (13:45)
--- NOTE | 2021-08-14 14:11 | HP ---
DATE OF SERVICE: 08/14/2021 ADMIT DATE: 08/13/2021 HISTORY OF PRESENT ILLNESS: The patient is an 89-year-old female patient who presented to the Emergency Room of [facility] via [facility] from home with a chief complaint of back pain. According to the report from the EMS, the patient tested positive for COVID-19 last several days. She has had increased back pain and body aches since that time. She also has generalized fatigue and has been having trouble getting around. Her primary remote encoding operations supervisor is her daughter, who is not available at this time to get some more information from her. When she came to the Emergency Room, the patient denied falling. She states that she has had back pain for quite some time and in reviewing her past chart from here at [facility], she had a CT scan of her lumbar spine done in 06/2021, which showed degenerative changes. The patient was extensively investigated and has had lab work and imaging studies. Her lab work showed that she was negative for influenza A and B, but was positive for rapid COVID 2 antigen. Her CBC showed normochromic, normocytic anemia and leukopenia. Her chemistry showed that she has impaired kidney function and hyperglycemia. Urinalysis was essentially unremarkable. Her CT scan of the chest showed the patient has bibasilar subsegmental atelectasis, no focal consolidative changes are identified. She has 6 mm solid noncalcified pulmonary nodule in the left upper lobe. Fleischner guidelines for incidentally detected pulmonary nodules suggest no routine followup for lack of patient risk for optional CT at 12 months for high risk patient with solid and noncalcified pulmonary nodules. Thoracic spine showed no evidence of acute compression fracture of the thoracic spine. The patient was admitted for further evaluation and eventually probably placement in a alf facility. PAST MEDICAL HISTORY: Significant for gastroesophageal reflux disease, type 2 diabetes mellitus, hypothyroidism, chronic constipation, hyperlipidemia, generalized deconditioning and bladder incontinence. PAST SURGICAL HISTORY: Significant for cholecystectomy, right total hip arthroplasty and total abdominal hysterectomy with bilateral salpingo-oophorectomy. ALLERGIES: SHE IS ALLERGIC TO SULFA DRUGS. FAMILY HISTORY: Noncontributory. SOCIAL HISTORY: She is , currently lives with her daughter and son-in-law. She never smoked, never drank alcohol, does not use any drugs. She is a retired registered nurse. MEDICATIONS: She is currently on the following home medications: She is on Aricept 5 mg once a day, simvastatin 80 mg at bedtime, omega 3 fatty acids 1 capsule daily, aspirin 81 mg once a day, tramadol 25 mg every 6 hours, primidone 50 mg daily. She is on carboxymethylcellulose sodium 1 drop to each eye 6 times a day. She is on Colace 100 mg twice a day, famotidine 20 mg twice a day, glipizide 5 mg p.o. b.i.d. with meals. She is on levothyroxine sodium 75 mcg once a day, oxybutynin chloride 5 mg daily. She is on cholecalciferol 800 units p.o. daily, multivitamin with mineral 1 tablet once a day, multivitamin 1 tablet once a day and polyethylene glycol 17 grams daily. REVIEW OF SYSTEMS: As per history of present illness. PHYSICAL EXAMINATION: GENERAL: On arrival to the Emergency Room, the patient looked somewhat pale, but no jaundice, cyanosis, no lymphadenopathy, no thyromegaly, no jugular venous distention. No limb edema. VITAL SIGNS: Her heart rate was 72, blood pressure was 126/55, temperature was 98.8, respiratory rate was 16 and oxygen saturation was 97% on room air. HEAD, EYES, EARS, NOSE, AND THROAT: Normocephalic, atraumatic. NECK: Supple. HEART: Showed normal first and second heart sounds. No gallop, rub or murmur. CHEST: Shows central trachea, equal bilateral expansion, air entry, vesicular breath sounds. I could not appreciate any crepitation or rhonchi. ABDOMEN: Distended, soft, nontender. NEUROLOGIC: She was very confused, although has no obvious lateralizing sign. She has generalized weakness. LABORATORY DATA: On admission showed a white cell count of 3600, hemoglobin 10.5, hematocrit 32, MCV 98 and platelet count of 196,000 with normal manual differential. Her chemistry showed a serum sodium 139, potassium 4.4, chloride 101, bicarbonate 28, anion gap of 10, BUN 48, creatinine 1.3. Estimated GFR was 38 mL per minute. Her glucose was 175, calcium was 8.2. Total bilirubin, AST, ALT, alkaline phosphatase were normal. Total protein 5.8, albumin was 2.6. Her urinalysis showed the urine was yellow, clear with a pH of 5.5, specific gravity 1.025. Her protein was 30 mg/dL. The urine was negative for glucose, ketones, blood, nitrite and leukocyte esterase. There were only 3-4 rbc's, 1-4 wbc's and no bacteria. Her influenza A and B were negative and SARS-CoV-2 antigens rapid testing was positive. Her CT scan of the chest showed there are bibasilar subsegmental atelectasis, no focal consolidative changes are identified. She has 6 mm solid noncalcified pulmonary nodules in the left upper lobe, no acute compression fracture of thoracic spine. PLAN: I will reconcile all her medications. We will continue with physical and occupational therapy and we will consult our employment evaluator/case manager as she probably needs to be placed in a alf facility. RENETTA/BINDU DR: Teresa TID: [id number]
[2021-08-14] MEDS ORDERED: POLYVINYL ALCOHOL/POVIDONE/PF OPHTH SOLUTION DROPERETTE. OU PRN (14:15)
--- NOTE | 2021-08-14 14:42 | NUR ---
Nurse was called and asked to do treatment, therapist busy in ER
--- NOTE | 2021-08-14 14:58 | NUR ---
nursing note Pt has been confused and agitated for this nurse this shift. during this shift pt has thrown bedpan across the room and stated multiple times that she is seeing a woman in her room .
[2021-08-14 15:36] VITALS: BP 140/72
[2021-08-14] MEDS: glipiZIDE 5 MG TABLET PO SCH (16:55)
[2021-08-14 19:44] VITALS: BP 143/78
[2021-08-14] MEDS: ATORVASTATIN CALCIUM 20 MG TABLET PO SCH (20:49)
[2021-08-14] MEDS: FAMOTIDINE 20 MG TABLET PO SCH (20:49)
[2021-08-14] MEDS ORDERED: [UNRECOGNIZED DRUG - OTHER] PO SCH (21:00)
[2021-08-14] MEDS ORDERED: ZEAXANT PO SCH (21:00)
[2021-08-14] MEDS ORDERED: LUTEIN PO SCH (21:00)
[2021-08-14] MEDS ORDERED: MULTIVIT MIN PO SCH (21:00)
[2021-08-14 22:02] VITALS: BP 164/74
--- NOTE | 2021-08-14 23:39 | PN ---
DATE: 08/14/2021 SUBJECTIVE: The patient is resting slightly propped up in bed, in no apparent distress. She continued to complain of generalized weakness and back pain. She has also had multiple episodes of loose bowel movement; however, she is afebrile. Denied any cough, phlegm. Denied any headache, chest pain or shortness of breath. PHYSICAL EXAMINATION: GENERAL: When I examined her, she looked somewhat pale, not jaundiced, cyanosed, no lymphadenopathy, no thyromegaly, no jugular venous distention. No limb edema. VITAL SIGNS: Her heart rate was 69, blood pressure is 161/68, temperature was 99.1, respiratory rate was 20 and oxygen saturation was 96% on room air. HEAD, EYES, EARS, NOSE, AND THROAT: Normocephalic, atraumatic. NECK: Supple. HEART: Normal first and second heart sounds. No gallop, rub or murmur. CHEST: Shows central trachea, equal bilateral chest expansion, air entry, vesicular breath sounds. No crepitation or rhonchi. ABDOMEN: Distended, soft, nontender. NEUROLOGIC: She is demented, but without any obvious lateralizing sign. She does; however, have generalized weakness of all extremities, very unsteady on her feet and requires a [place] lift for transfer. Her intake and output are incompletely recorded. LABORATORY DATA: She has no lab work done this morning. PLAN: To continue with all her current medications. Continue to monitor blood sugar and I have ordered physical and occupational therapy to evaluate and treat. Eventually, she probably needs to be in a [facility] facility for rehabilitation for long-term care. ANNA DR: Teresa TID: [id number]
[2021-08-15] MEDS: LEVOTHYROXINE 75 MCG TABLET PO SCH (05:53)
[2021-08-15 06:05] VITALS: BP 178/80
[2021-08-15 06:55] LABS: HEMATOCRIT 32.8 % (36.0-47.0); HEMOGLOBIN 10.7 g/dL (12.0-15.5); RED BLOOD COUNT 3.36 x10^6/uL (3.50-5.40); RED CELL DISTRIBUTION WIDTH 15.4 % (11.5-14.5); WHITE BLOOD COUNT 6.7 x10^3/uL (4.0-11.0)
[2021-08-15 07:17] LABS: ALBUMIN 2.2 g/dL (3.4-5.0); ALBUMIN/GLOBULIN RATIO 0.8 (1.0-1.7); CALCIUM 7.6 mg/dL (8.5-10.1); CREATININE 0.9 mg/dL (0.6-1.0); POTASSIUM 3.3 mmol/L (3.5-5.1); TOTAL BILIRUBIN 0.2 mg/dL (0.2-1.0); TOTAL PROTEIN 5.1 g/dL (6.4-8.2)
[2021-08-15] MEDS: BUDESONIDE 0.5 MG/2 ML NEBU NEB SCH ×2 (08:00→21:58)
[2021-08-15] MEDS: CHOLECALCIFEROL (VITAMIN D3) 1,000 UNIT TABLET PO SCH (08:51)
[2021-08-15] MEDS: ENOXAPARIN 40 MG/0.4 ML SYRINGE. SQ SCH (08:51)
[2021-08-15] MEDS: glipiZIDE 5 MG TABLET PO SCH ×2 (08:51→16:16)
[2021-08-15] MEDS: OMEGA-3 FATTY ACIDS/FISH OIL 1,000 MG CAPSULE. PO SCH (08:51)
[2021-08-15] MEDS: AZITHROMYCIN 250 MG TABLET. PO SCH (08:51)
[2021-08-15] MEDS: ZINC SULFATE 220 MG CAPSULE. PO SCH (08:52)
[2021-08-15] MEDS: ASCORBIC ACID 1,000 MG TABLET PO SCH (08:52)
[2021-08-15] MEDS: ASPIRIN CHEWABLE 81 MG TABLET. PO SCH (08:52)
[2021-08-15] MEDS: FAMOTIDINE 20 MG TABLET PO SCH ×2 (08:52→21:58)
[2021-08-15] MEDS: MULTIVITAMIN I-VITE TABLET. PO SCH (08:52)
[2021-08-15] MEDS: PRIMIDONE 50 MG TABLET PO SCH (08:52)
[2021-08-15] MEDS: OXYBUTYNIN CHLORIDE 5 MG TABLET PO SCH (08:52)
[2021-08-15] MEDS: DONEPEZIL HCL 5 MG TABLET. PO SCH (08:52)
[2021-08-15] MEDS: DEXAMETHASONE SOD PHOS 4 MG/ML VIAL. IVP SCH (08:53)
[2021-08-15 12:06] VITALS: BP 130/78
--- NOTE | 2021-08-15 15:02 | NUR ---
PT PLEASANTLY CONFUSED TODAY. PHYSICAL THERAPY GOT PT UP TO A CHAIR, AND SHE SAT FOR ABOUT AN HOUR BEFORE WANTING TO GO BACK TO BED. PT CONTINUES TO BE ON ROOM AIR. PT DOES NOT HAVE ANY COMPLAINTS AT THIS TIME. PLAN IS TO LOOK FOR PLACEMENT AT SNF. PT NEEDING SOME ASSISTANCE TO EAT. PT PULLED MITTENS OFF EARLY THIS MORNING AFTER ESCALATOR SERVICE MECHANIC PLACED THEM D/T PT PULLING ON IV AND CAI. PT HAS A SLIGHT COUGH THAT IS NON-PRODUCTIVE.
[2021-08-15] MEDS ORDERED: amLODIPine BESYLATE 5 MG TABLET PO ONE (16:00)
[2021-08-15 16:14] VITALS: BP 192/86
[2021-08-15 19:00] VITALS: BP 134/83
--- NOTE | 2021-08-15 20:09 | PN ---
DATE: 08/15/2021 SUBJECTIVE: The patient is resting, slightly propped up in bed, in no apparent distress. She is very confused, extremely weak. PHYSICAL EXAMINATION: GENERAL: When I examined her, she was somewhat pale, not jaundiced, cyanosed, no lymphadenopathy, no thyromegaly, no jugular venous distention. No limb edema. VITAL SIGNS: Her heart rate was 87, blood pressure was 130/78, temperature was 99.7, respiratory rate was 16 and oxygen saturation was 97%. HEAD, EYES, EARS, NOSE, AND THROAT: Showed normocephalic, atraumatic. NECK: Supple. HEART: Normal first and second heart sounds. No gallop, rub or murmur. CHEST: Clear to auscultation. No crepitation or rhonchi. ABDOMEN: Distended, soft, nontender. NEUROLOGIC: She was grossly intact, although demented with marked weakness. She required 2-person assist to get her out of the bed. Her intake over the last 24 hours was 800, no output was recorded. LABORATORY DATA: This morning showed a white cell count of 6700, hemoglobin 11, hematocrit 33, MCV 98, platelet count of 101,000. Her serum sodium was 143, potassium 3.3, chloride 108, bicarbonate 23, anion gap of 12, BUN 32, creatinine 0.9. Estimated GFR was 59 mL per minute. Her glucose was 49, calcium was 7.6. Total bilirubin, AST, ALT normal. Her CK was high at 650. Total protein was 5.1, albumin was 2.2. Her TSH was normal at 2.790. Urinalysis was unremarkable. ASSESSMENT: The patient was admitted with generalized weakness. She has a multitude of other medical problems including: A. Type 2 diabetes mellitus. B. Hypothyroidism. C. Chronic constipation. D. Hyperlipidemia. E. Generalized deconditioning. F. Bladder incontinence. PLAN: To continue with all her current medications. Continue especially antibiotic, dexamethasone and Lovenox and continue with physical and occupational therapy. The patient will need to be transferred to either retirement facility or long-term care facility and she is no longer capable of taking care of herself and her daughter is unable to take care of her. HA DR: Teresa TID: [id number]
[2021-08-15] MEDS: LACTOBACILLUS RHAMNOSUS GG 1 CAPSULE. PO SCH (21:58)
[2021-08-15] MEDS: ATORVASTATIN CALCIUM 20 MG TABLET PO SCH (21:58)
--- NOTE | 2021-08-16 03:14 | NUR ---
Nursing note: Pt alert to self only. When asked where she was, pt stated "[place]". Pt unable to answer orientation questions appropriately. Slept much of shift. No issue at this time with pt pulling on IV or being combative.
[2021-08-16] MEDS: LEVOTHYROXINE 75 MCG TABLET PO SCH (04:57)
--- NOTE | 2021-08-16 06:18 | NUR ---
Nursing note: Pt temperature 99.4 temporal, 101.1 axillary, 98 oral but pt kept biting down on thermometer. Removed blankets, decreased room temp, and encouraged oral hydration. Recheck temp was WNL.
[2021-08-16 06:29] VITALS: BP 156/63
[2021-08-16] MEDS: BUDESONIDE 0.5 MG/2 ML NEBU NEB SCH ×3 (08:00→21:44)
[2021-08-16] MEDS: ENOXAPARIN 40 MG/0.4 ML SYRINGE. SQ SCH (08:27)
[2021-08-16] MEDS: ASPIRIN CHEWABLE 81 MG TABLET. PO SCH (08:28)
[2021-08-16] MEDS: ZINC SULFATE 220 MG CAPSULE. PO SCH (08:28)
[2021-08-16] MEDS: AZITHROMYCIN 250 MG TABLET. PO SCH (08:28)
[2021-08-16] MEDS: OMEGA-3 FATTY ACIDS/FISH OIL 1,000 MG CAPSULE. PO SCH (08:28)
[2021-08-16] MEDS: DEXAMETHASONE SOD PHOS 4 MG/ML VIAL. IVP SCH (08:28)
[2021-08-16] MEDS: ASCORBIC ACID 1,000 MG TABLET PO SCH (08:28)
[2021-08-16] MEDS: LACTOBACILLUS RHAMNOSUS GG 1 CAPSULE. PO SCH ×2 (08:29→21:43)
[2021-08-16] MEDS: CHOLECALCIFEROL (VITAMIN D3) 1,000 UNIT TABLET PO SCH (08:29)
[2021-08-16] MEDS: DONEPEZIL HCL 5 MG TABLET. PO SCH (08:29)
[2021-08-16] MEDS: PRIMIDONE 50 MG TABLET PO SCH (08:29)
[2021-08-16] MEDS: MULTIVITAMIN I-VITE TABLET. PO SCH (08:29)
[2021-08-16] MEDS: FAMOTIDINE 20 MG TABLET PO SCH ×2 (08:29→21:43)
[2021-08-16] MEDS: glipiZIDE 5 MG TABLET PO SCH ×3 (08:29→17:15)
[2021-08-16] MEDS: OXYBUTYNIN CHLORIDE 5 MG TABLET PO SCH (08:29)
--- NOTE | 2021-08-16 16:07 | NUR ---
Nursing note: Patien cooperative with assessment & medications taken whole. She is A/O to self only, calm, forgetful, & pleasant. Speach can be garbles at times. Blood sugar low in am, after eating breakfast it was normal. Staff assist with meals. She has been sleeping on and off through the day. She continues on isolation due to COVID. She has been on bedrest due to weakness. She denies pain/discomfort, no facial grimacing noted. She is currently resting with eyes closed, call light in reach. Will continue to monitor. Addendum: 08/16/21 at 1829 by MICHELLE COLE RN RN Patient aspirated at dinner, Dr cheung, chest x-ray order noted. This nurse changed diet to ADA & nectur thickened liquids. Will continue to monitor.
[2021-08-16 20:00] VITALS: BP 157/61
--- NOTE | 2021-08-16 21:38 | PN ---
DATE: 08/16/2021 SUBJECTIVE: The patient is resting slightly propped up in bed. She is somewhat flushed. Her heart rate was up to 109. Her temperature was up to 101.1. She is tachypneic. When I examined her, she was somewhat flushed. She also was confused and mumbling. PHYSICAL EXAMINATION: VITAL SIGNS: Her heart rate was 109, blood pressure is 156/63, temperature was 101.1, respiratory rate 32, and oxygen saturation was 99% on room air. HEAD, EYES, EARS, NOSE, AND THROAT: Normocephalic, atraumatic. NECK: Supple. HEART: Normal first and second heart sounds. No gallop, rub or murmur. CHEST: Showed central trachea, equal bilateral chest expansion, air entry, vesicular breath sounds. I could not really appreciate any crepitation or rhonchi. ABDOMEN: Distended, soft, nontender. NEUROLOGIC: She is demented, but without any obvious lateralizing signs. She is mostly bedbound. Her intake over the last 24 hours was 1125, output was 1300. Her blood sugar seems to be reasonably controlled. I will cut down her glipizide to 2.5 mg twice a day. We will continue with IV antibiotic and Zithromax. ASSESSMENT: 1. COVID-19 pneumonia. 2. Generalized weakness. 3. The patient has multiple other medical problems including: A. Type 2 diabetes mellitus. B. Hypothyroidism. C. Chronic constipation. D. Hyperlipidemia. E. Bladder incontinence. PLAN: To continue with current medication. As blood sugar is low, I will cut down her glipizide to 2.5 mg twice a day. I will repeat all her lab work as well as x-ray tomorrow and decide the further management accordingly. RENETTA/SHUKRI STEVENSON: Teresa TID: [id number]
[2021-08-16] MEDS: ATORVASTATIN CALCIUM 20 MG TABLET PO SCH (21:43)
[2021-08-17] MEDS: LEVOTHYROXINE 75 MCG TABLET PO SCH (06:02)
[2021-08-17 06:25] VITALS: BP 119/82
[2021-08-17 07:30] LABS: BASO % 0 % (0-3); EOS % 0 % (0-3); HEMATOCRIT 30.6 % (36.0-47.0); LYMPH # 0.5 x10^3/uL (1.0-4.8); LYMPH % 9 % (24-48); MEAN CORPUSCULAR HEMOGLOBIN 32 pg (25-35); MEAN CORPUSCULAR HGB CONC 33 g/dL (31-37); MEAN CORPUSCULAR VOLUME 98 fL (79-100); MONO # 0.9 x10^3/uL (0.0-1.1); MONO % 16 % (0-9); NEUT % 75 % (31-73); PLATELET COUNT 168 x10^3/uL (140-400); RED BLOOD COUNT 3.13 x10^6/uL (3.50-5.40); WHITE BLOOD COUNT 5.4 x10^3/uL (4.0-11.0)
[2021-08-17 07:52] LABS: ALBUMIN 2.1 g/dL (3.4-5.0); ALBUMIN/GLOBULIN RATIO 0.7 (1.0-1.7); CALCIUM 7.9 mg/dL (8.5-10.1); CREATININE 0.8 mg/dL (0.6-1.0); GFR 67.5; POTASSIUM 4.1 mmol/L (3.5-5.1); TOTAL BILIRUBIN 0.2 mg/dL (0.2-1.0); TOTAL PROTEIN 5.1 g/dL (6.4-8.2)
[2021-08-17] MEDS: BUDESONIDE 0.5 MG/2 ML NEBU NEB SCH ×2 (08:00→20:55)
[2021-08-17] MEDS: ENOXAPARIN 40 MG/0.4 ML SYRINGE. SQ SCH (08:00)
--- NOTE | 2021-08-17 08:25 | RAD ---
XR CHEST 1V INDICATION: worsening shortness of breath COMPARISON STUDY: CT 08/13/2021. Radiograph 07/21/2021. FINDINGS: Rotation to the right Lungs: Low lung volume. Left basilar heterogeneous opacities. Pleura: Small left pleural effusion. Heart and Mediastinum: Stable cardiomediastinal silhouette and great vessels. Bones and Soft Tissues: Stable regional skeleton and soft tissues. IMPRESSION: Left basilar opacities, which could represent subsegmental atelectasis or infection. Small left pleural effusion Electronically signed by: Kemar Jones MD (08/17/2021 8:23 AM) [id number]
[2021-08-17] MEDS: DEXAMETHASONE SOD PHOS 4 MG/ML VIAL. IVP SCH (09:34)
[2021-08-17] MEDS: ZINC SULFATE 220 MG CAPSULE. PO SCH (09:34)
[2021-08-17] MEDS: OMEGA-3 FATTY ACIDS/FISH OIL 1,000 MG CAPSULE. PO SCH (09:34)
[2021-08-17] MEDS: OXYBUTYNIN CHLORIDE 5 MG TABLET PO SCH (09:34)
[2021-08-17] MEDS: glipiZIDE 5 MG TABLET PO SCH ×2 (09:35→18:18)
[2021-08-17] MEDS: DONEPEZIL HCL 5 MG TABLET. PO SCH (09:35)
[2021-08-17] MEDS: CHOLECALCIFEROL (VITAMIN D3) 1,000 UNIT TABLET PO SCH (09:35)
[2021-08-17] MEDS: FAMOTIDINE 20 MG TABLET PO SCH ×2 (09:36→20:56)
[2021-08-17] MEDS: ASCORBIC ACID 1,000 MG TABLET PO SCH (09:37)
[2021-08-17] MEDS: LACTOBACILLUS RHAMNOSUS GG 1 CAPSULE. PO SCH ×2 (09:37→20:55)
[2021-08-17] MEDS: AZITHROMYCIN 250 MG TABLET. PO SCH (09:37)
[2021-08-17] MEDS: MULTIVITAMIN I-VITE TABLET. PO SCH (09:37)
[2021-08-17] MEDS: ASPIRIN CHEWABLE 81 MG TABLET. PO SCH (09:38)
[2021-08-17] MEDS: PRIMIDONE 50 MG TABLET PO SCH (09:39)
--- NOTE | 2021-08-17 11:45 | NUR ---
NURS NOTE PT A&OX1 TODAY. SHE TOOK MEDICATIONS WITH THICKENED LIQUIDS BUT STATED "I DO NOT WANT THOSE THICK LIQUIDS I WANT WATER." PT DENIES ANY PAIN. PT GOT UP TO CHAIR WITH PT. PT INTERMITTENTLY SCREAMING FROM ROOM "HELLO!" AND BANGING HER SPOON FROM BREAKFAST AGAINST TABLE. WHEN ASKED WHAT SHE NEEDS PATIENT SAYS "I DON'T KNOW COME IN HERE". PT IS CONFUSED AND STRESSED THIS MORNING. MEDICALLY STABLE AND WITHOUT MAJOR SYMPTOMS. SOME SOB WITH EXERTION AND A PRODUCTIVE COUGH.
[2021-08-17 11:49] VITALS: BP 138/61
[2021-08-17 15:42] VITALS: BP 138/64
[2021-08-17 19:00] VITALS: BP 154/76
[2021-08-17] MEDS: ATORVASTATIN CALCIUM 20 MG TABLET PO SCH (20:56)
--- NOTE | 2021-08-18 01:19 | PN ---
DATE: 08/17/2021 SUBJECTIVE: The patient is resting sitting comfortably in her chair in no apparent respiratory distress. She has continued to be extremely confused, agitated at times. PHYSICAL EXAMINATION: GENERAL: When I examined her, she was pale, not jaundiced or cyanosed, no lymphadenopathy, no thyromegaly, no jugular venous distention. No limb edema. VITAL SIGNS: Her heart rate was 76, blood pressure was 138/64, temperature was 98.8, respiratory rate was 16 and oxygen saturation was 95%. HEAD, EYES, EARS, NOSE AND THROAT: Normocephalic, atraumatic. NECK: Supple. HEART: Showed normal first and second heart sounds. No gallop, rub or murmur. CHEST: Shows central trachea, equal bilateral chest expansion. She has crepitation mostly posteriorly on the left side. NEUROLOGIC: She is demented, but without any obvious lateralizing sign. All her cranial nerves are intact. She moves extremities without difficulty, although she is mostly bedbound, chair bound. Her intake was 860, output was 1450. LABORATORY DATA: As of this morning, her white cell count was 5400, hemoglobin 10, hematocrit 30, MCV 98 and platelet count of 168,000. Her chemistry showed a serum sodium 142, potassium 4.1, chloride 108, bicarbonate 25, anion gap of 9, BUN 30, creatinine 0.8. Estimated GFR was 67 mL per minute. Her glucose 142, calcium was 7.9. Total bilirubin, AST, ALT, alkaline phosphatase were normal. Total protein 5.1, albumin was 2.1. ASSESSMENT: 1. COVID-19 pneumonia. 2. Generalized weakness. 3. The patient has multiple other medical problems including. A. Type 2 diabetes mellitus. B. Hypothyroidism. C. Chronic constipation. D. Hyperlipidemia. E. Bladder incontinence. PLAN: Continue with dexamethasone. Continue with ceftriaxone and Zithromax. Continue with Lovenox for DVT prophylaxis. I did cut back on her glipizide to 2.5 mg twice a day and her blood sugar is much improved. We did consult our case management for placement, although the fact that she is now COVID positive makes it difficult to find placement for her. MUKESH DR: Teresa TID: [id number]
[2021-08-18 05:00] VITALS: BP 160/71
[2021-08-18] MEDS: LEVOTHYROXINE 75 MCG TABLET PO SCH (05:25)
[2021-08-18] MEDS: MULTIVITAMIN I-VITE TABLET. PO SCH (08:56)
[2021-08-18] MEDS: ASPIRIN CHEWABLE 81 MG TABLET. PO SCH (08:56)
[2021-08-18] MEDS: DONEPEZIL HCL 5 MG TABLET. PO SCH (08:56)
[2021-08-18] MEDS: FAMOTIDINE 20 MG TABLET PO SCH ×2 (08:56→21:41)
[2021-08-18] MEDS: ASCORBIC ACID 1,000 MG TABLET PO SCH (08:56)
[2021-08-18] MEDS: AZITHROMYCIN 250 MG TABLET. PO SCH (08:56)
[2021-08-18] MEDS: ZINC SULFATE 220 MG CAPSULE. PO SCH (08:56)
[2021-08-18] MEDS: CHOLECALCIFEROL (VITAMIN D3) 1,000 UNIT TABLET PO SCH (08:56)
[2021-08-18] MEDS: OMEGA-3 FATTY ACIDS/FISH OIL 1,000 MG CAPSULE. PO SCH (08:56)
[2021-08-18] MEDS: LACTOBACILLUS RHAMNOSUS GG 1 CAPSULE. PO SCH ×2 (08:56→21:41)
[2021-08-18] MEDS: glipiZIDE 5 MG TABLET PO SCH ×2 (08:56→16:13)
[2021-08-18] MEDS: OXYBUTYNIN CHLORIDE 5 MG TABLET PO SCH (08:56)
[2021-08-18] MEDS: DEXAMETHASONE SOD PHOS 4 MG/ML VIAL. IVP SCH (08:57)
[2021-08-18] MEDS: ENOXAPARIN 40 MG/0.4 ML SYRINGE. SQ SCH (08:57)
[2021-08-18] MEDS: PRIMIDONE 50 MG TABLET PO SCH (08:58)
[2021-08-18] MEDS: BUDESONIDE 0.5 MG/2 ML NEBU NEB SCH ×2 (11:50→20:00)
[2021-08-18 12:17] VITALS: BP 160/73
[2021-08-18 19:00] VITALS: BP 167/68
[2021-08-18] MEDS: ATORVASTATIN CALCIUM 20 MG TABLET PO SCH (21:41)
--- NOTE | 2021-08-18 22:17 | PN ---
DATE: 08/18/2021 SUBJECTIVE: The patient is resting, slightly propped up in bed, in no apparent distress. She denied any complaint. The nursing staff did not voice any concern except that she is extremely weak and will not participate with physical and occupational therapy. PHYSICAL EXAMINATION: GENERAL: When I examined her, she looked well and was clearly in no apparent respiratory distress, pale, but not jaundiced, cyanosed, no lymphadenopathy, no thyromegaly, no jugular venous distention, no limb edema. VITAL SIGNS: Her heart rate was 61, blood pressure is 160/73, temperature was 98.4, respiratory rate was 18 and oxygen saturation was 93% on room air. HEAD, EYES, EARS, NOSE, AND THROAT: Normocephalic, atraumatic. NECK: Supple. HEART: Showed normal first and second heart sounds, no gallop or murmur. CHEST: Clear to auscultation. No crepitation or rhonchi. ABDOMEN: Distended, soft, nontender. NEUROLOGIC: She is awake, alert, responding at times appropriately. All cranial nerves intact. She moves upper extremities to much good extent than lower extremities. She is mostly bedbound. Her intake was 720, output was 600. LABORATORY DATA: Showed hemoglobin 10, hematocrit 30. Her white cell count was 5400, hemoglobin was 168. Her chemistry was also unremarkable. ASSESSMENT: 1. COVID-19 pneumonia. 2. Generalized weakness. 3. The patient has multiple other medical problems including: A. Type 2 diabetes mellitus. B. Hypothyroidism. C. Chronic constipation. D. Hyperlipidemia. E. Bladder incontinence. PLAN: To continue with IV dexamethasone. Continue with ceftriaxone and Zithromax. Continue with Lovenox for DVT prophylaxis. Her blood sugar seems to be much better controlled now. Has had no further episode of hypoglycemia after we cut the glipizide to 2.5 mg twice a day. Apparently, she is scheduled to be discharged tomorrow to go to [facility] in [place]. ANNA STEVENSON: Teresa TID: [id number]
[2021-08-19 05:00] VITALS: BP 167/68
[2021-08-19] MEDS: LEVOTHYROXINE 75 MCG TABLET PO SCH (06:00)
[2021-08-19] MEDS: BUDESONIDE 0.5 MG/2 ML NEBU NEB SCH (06:07)
[2021-08-19] MEDS: CHOLECALCIFEROL (VITAMIN D3) 1,000 UNIT TABLET PO SCH (09:00)
[2021-08-19] MEDS: MULTIVITAMIN I-VITE TABLET. PO SCH (09:01)
[2021-08-19] MEDS: ENOXAPARIN 40 MG/0.4 ML SYRINGE. SQ SCH (09:01)
[2021-08-19] MEDS: LACTOBACILLUS RHAMNOSUS GG 1 CAPSULE. PO SCH (09:01)
[2021-08-19] MEDS: FAMOTIDINE 20 MG TABLET PO SCH (09:02)
[2021-08-19] MEDS: AZITHROMYCIN 250 MG TABLET. PO SCH (09:02)
[2021-08-19] MEDS: OXYBUTYNIN CHLORIDE 5 MG TABLET PO SCH (09:02)
[2021-08-19] MEDS: ASPIRIN CHEWABLE 81 MG TABLET. PO SCH (09:02)
[2021-08-19] MEDS: glipiZIDE 5 MG TABLET PO SCH (09:02)
[2021-08-19] MEDS: DEXAMETHASONE SOD PHOS 4 MG/ML VIAL. IVP SCH (09:03)
[2021-08-19] MEDS: PRIMIDONE 50 MG TABLET PO SCH (09:03)
[2021-08-19] MEDS: DONEPEZIL HCL 5 MG TABLET. PO SCH (09:03)
[2021-08-19] MEDS: ZINC SULFATE 220 MG CAPSULE. PO SCH (09:03)
[2021-08-19] MEDS: ASCORBIC ACID 1,000 MG TABLET PO SCH (09:03)
[2021-08-19] MEDS: OMEGA-3 FATTY ACIDS/FISH OIL 1,000 MG CAPSULE. PO SCH (09:03)
--- NOTE | 2021-08-19 10:09 | DS ---
DATE OF DISCHARGE: 08/19/2021 ATTENDING PHYSICIAN: Dr. Mathis. FINAL DISCHARGE DIAGNOSES: 1. COVID pneumonia, improved. 2. Generalized weakness. 3. Type 2 diabetes mellitus. 4. Hypothyroidism, on replacement. 5. Chronic constipation. 6. Chronic low back pain. 7. Incontinence of bladder. HISTORY OF PRESENT ILLNESS: As the days an 89-year-old female with multiple medical issues. She presented with weakness, dehydration and some shortness of breath. She was tested positive for COVID. She had evidence of COVID pneumonia. PHYSICAL EXAMINATION: Please see the dictated note. PERTINENT LABORATORY AND X-RAY STUDIES: They are on the database. Prior to discharge, her hemoglobin is stable at 10.0 gm/dL, white count 5400. Electrolytes within normal range. Creatinine 0.8 mg/dL. Nonfasting blood sugar 142. Serology positive for the coronavirus. COURSE IN THE HOSPITAL: She was admitted. She was given intravenous antibiotics, corticosteroids. Home meds were continued. Supplemental oxygen was added. Eventually supplemental oxygen was weaned down. She did quite well. Because of her weakness, arrangements were made for the patient transferred to [facility] in [place], [place] on the sixth hospital day. Dr. Mathis recommended 6 more days of cefdinir 300 mg p.o. b.i.d. In addition, she will continue all her other home meds including aspirin, methyl cellulose, cholecalciferol, docusate, Aricept, famotidine, glipizide, Synthroid, multivitamin, omega 3 fish oil, oxybutynin, MiraLax, Mysoline, Zocor and tramadol p.r.n. doses unchanged. She is a DNR per advanced directive. She was discharged from our hospital in stable condition with explicit drug and followup care. ЮЛИЯ/QUETA DR: Chan TID: [id number] CC: MERY MATHIS MD
--- NOTE | 2021-08-19 10:30 | NUR ---
Nursing note Morning assessments done, medications administered per doctors orders. PT discharged from the hospital to go to [facility]. Discharge assessments done and documented, report called to facility at 0930, medication list faxed over to the facility. PT assisted off the floor by the nurse with a wheel chair and picked up from the hospital by transportation of [facility].
== END 2021-08-19 10:37 | DRG 177 ==
LOC: ER 15:47 → 1 SOUTH 20:30
PROVIDERS: ADMIT Internal Medicine; ATTEND Internal Medicine
DX: U07.1 COVID-19 (principal); J12.82 Pneumonia due to coronavirus disease 2019; J98.11 Atelectasis; D64.9 Anemia, unspecified; E03.9 Hypothyroidism, unspecified; E11.65 Type 2 diabetes mellitus with hyperglycemia; E78.5 Hyperlipidemia, unspecified; E86.0 Dehydration; F03.90 Unspecified dementia, unspecified severity, without behavioral disturbance, psychotic disturbance, mood disturbance, and anxiety; G89.29 Other chronic pain; K59.09 Other constipation; N28.9 Disorder of kidney and ureter, unspecified; R32 Unspecified urinary incontinence; Z66 Do not resuscitate; Z90.710 Acquired absence of both cervix and uterus; Z96.641 Presence of right artificial hip joint; F32.A Depression, unspecified; F41.9 Anxiety disorder, unspecified; K21.9 Gastro-esophageal reflux disease without esophagitis; M19.90 Unspecified osteoarthritis, unspecified site; Z88.2 Allergy status to sulfonamides; Z74.01 Bed confinement status; Z88.8 Allergy status to other drugs, medicaments and biological substances
CPT/HCPCS: 36415; 71045; 71250; 76376; 80053; 81001; 82550; 82947; 84443; 85007; 85025; 85027; 94640; 96360; J0696; J1100; J1650; 97530; 99285-25; J7030